=== PATIENT | female | born 2000 | race Caucasian/White ===

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

== ENCOUNTER 2021-11-17 20:30 | Inpatient (IN) ==
--- NOTE | 2021-11-17 20:44 | Emergency Department Note ---
History of Present Illness General Chief complaint: Leg Injury/Pain Stated complaint: POSSIBLE BROKEN LEG, CAN'T BEND, NUMBNESS Time Seen by Provider: 11/17/21 20:44 History of Present Illness Maximum Pain Intensity: 8 This is a 20-year-old female otherwise healthy only on oral contraceptive medication who presents with concern that she broke her left leg. She was at the [employer] [place] and landed awkwardly in the foam pit and states that the leg was moving around. They splinted it with 2 books on either side and came to the emergency department. She has been unable to bear weight on the leg. She has not taken anything for pain. Is only requesting Tylenol because she is dafne rned any other medication may affect her mental status. She denies any numbness or tingling in her feet. Denies any prior injuries or surgeries to the left lower extremity. Did not hit her head, denies any pain anywhere else. Home Medications Medication Instructions Recorded Confirmed Type norethindrone (contraceptive) 1 tab PO DAILY 11/17/21 11/17/21 History Allergies Allergy/AdvReac Type Severity Reaction Status Date / Time prednisone AdvReac Nausea Verified 11/17/21 20:51 Past Med/Surg History Medical History No pertinent past medical history Surgical History No pertinent past surgical history Social History Smoking Status: Never smoker Second Hand Exposure: No; Do You Dip or Chew Tobacco: No; Hx Alcohol Use: No Hx Substance Use: No Preferred Language: Andorran Communication Ability: Effective Computer Assistant Required: No Beliefs That Will Affect Care: None Current Living Situation: Significant Other Current Living Situation Comment: lives with boyfriend Other Information That Helps Us Care for You: No Feels Safe at Home: Yes Safety Concerns: Feels Safe At This Time Assistive Devices: None Review of Systems See HPI for pertinent positives & negatives. and A total of 10 systems reviewed and were otherwise negative Physical Exam Vital Signs Vital Signs - 24 hr 11/17/21 20:33 Temperature 98.1 F Temperature Source Temporal Artery Scan Pulse Rate 90 Respiratory Rate 16 Respiratory Effort / Characteristics Non-Labored Spontaneous Respiratory Depth Normal Respiratory Pattern Regular Blood Pressure 111/68 Blood Pressure Mean 82 Pulse Oximetry 98 Oxygen Delivery Method Room Air Sepsis Recent Fever Within 48 Hours No Sepsis New/Unexplained Change in Mental Status N/A Sepsis Action Taken by Nursing No Action Required CONSTITUTIONAL: Well developed, well nourished, appears to be in pain, shaking intermittently. HEAD: Normocephalic, atraumatic. NECK: Full active range of motion. No spinous process tenderness RESPIRATORY: Breathing unlabored and symmetric. Lungs clear to auscultation bilaterally. No wheeze, rales, or rhonchi. CARDIOVASCULAR: Tachycardic rate and rhythm. No murmurs, rubs, or gallops. DP and PT pulses 2+ bilaterally. CHEST: Nontender, no crepitus. ABDOMEN: Normal bowel sounds. Soft, nontender, no peritonitis. No masses. MUSCULOSKELETAL: Moves bilateral upper and right lower extremities at all joints without pain or difficulty. Left lower extremity: No tenderness in the knee. There is a bulging deformity a t the mid tibial region with associated significant tenderness. Compartments in the lower extremity are soft. Ankle with decreased range of motion although there is no specific focal tenderness appreciated. No foot bony tenderness. There is a 1 cm horizontal superficial linear abrasion several centimeters inferior to the bulge. There is no hemorrhage. Does not communicate with deeper structures. Able to move all toes. Back: No thoracic, lumbar, sacral spinous process tenderness. No step-off deformity. SKIN: [place], warm, dry. Capillary refill less than 2 seconds in bilateral toes. No cyanosis. NEUROLOGIC: Awake, alert, oriented. Gaze is conjugate. Face symmetric. No sensory deficits in bilateral feet/toes. PSYCHIATRIC: Anxious appearing. Course Consultations Consultation #1: Spoke with Dr. Lugo (orthopedics on-call) who visualized the x-rays. We discussed the wound on the leg which does seem to be superficial in nature and is not persistently bleeding. He recommends irrigating the wound, Ancef for prophylaxis however leaning away from open fracture. He recommends a long-leg splint, he will admit the patient, and see her first thing in the morning for surgery Time: 22:30 Administered Medications Discontinued Medications Acetaminophen (Acetaminophen 1000 Mg/100 Ml Iv) Confirm Administered Dose 1,000 mg IV .LayerBoomMED ONE Stop: 11/17/21 21:02 Last Admin: 11/17/21 21:14 Dose: 1,000 mg Documented By: NELY Hydromorphone HCl (Hydromorphone Inj 1 Mg/Ml Syringe) 1 mg IV NOW STA Stop: 11/17/21 22:50 Last Admin: 11/17/21 22:56 Dose: 1 mg Documented By: KATHY Acetaminophen 1,000 mg/ EMPTY (BAG) 100 mls @ 400 mls/hr IV NOW STA Stop: 11/17/21 20:53 Last Admin: 11/17/21 21:15 Dose: Not Given Documented By: NELY Cefazolin Sodium (Ancef 2000mg) 2,000 mg in 15 mls @ 3.75 mls/min IV NOW STA Stop: 11/17/21 22:15 Last Admin: 11/17/21 22:31 Dose: 3.75 mls/min Documented By: NELY Sodium Chloride (Nss) 500 mls @ 999 mls/hr IV .Q31M ONE Stop: 11/18/21 00:12 Last Admin: 11/17/21 23:47 Dose: 999 mls/hr Documented By: ASHANTI Ondansetron HCl (Ondansetron Inj 2 Mg/Ml 2 Ml Vial) 4 mg IV NOW STA Stop: 11/17/21 22:04 Last Admin: 11/17/21 22:06 Dose: 2 mg Documented By: NELY Potassium Chloride (Potassium Chloride Crtab 20 Meq Tabcr) 40 meq PO NOW STA Stop: 11/17/21 23:13 Last Admin: 11/17/21 23:57 Dose: Not Given Documented By: KATHY Medical Decision Making Differential Diagnosis Closed fracture, open fracture, dislocation, subluxation, laceration, abrasion, neurovascular injury, compartment syndrome, intracranial, intrathoracic, intra- abdominal, among other pathology. Laboratory Data Result diagrams: 11/17/21 21:05 11/17/21 23:37 Lab Results 11/17/21 11/17/21 11/17/21 Range/Units 21:05 21:05 21:05 WBC 10.82 H (4.8-10.8) K/ul RBC 4.21 (3.93-5.22) M/uL Hgb 12.7 (12.0-16.0) g/dl Hct 37.0 (34.1-44.9) % MCV 87.9 (80.0-100.0) fL MCH 30.2 (25.0-34.0) pg MCHC 34.3 (32.0-36.0) g/dL RDW Std Deviation 37.9 (36.4-46.3) fL RDW Coeff of [place]alo 11.9 (11.5-14.5) % Plt Count 354 (130-400) K/uL MPV 9.1 L (9.4-12.3) fL Immature Gran % (Auto) 0.4 % Neut % (Auto) 55.1 % Lymph % (Auto) 33.5 % [place] % (Auto) 8.0 % Eos % (Auto) 2.4 % Baso % (Auto) 0.6 % Neut # (Auto) 5.96 (1.4-6.5) K/uL Lymph # (Auto) 3.63 H (1.2-3.4) K/uL [place] # (Auto) 0.87 H (0.24-0.82) K/uL Eos # (Auto) 0.26 (0-0.50) K/uL Baso # (Auto) 0.06 (0-0.2) K/uL Immature Gran # (Auto) 0.04 H (0.00-0.02) K/uL Sodium 139 (136-145) mmol/L Potassium 3.0 L (3.5-5.1) mmol/L Chloride 106 (98-107) mmol/L Carbon Dioxide 24 (21-32) mmol/L Anion Gap 9 (3-11) BUN 15 (6-23) mg/dl Creatinine 0.71 (0.6-1.2) mg/dl Est Cr Clr Drug Dosing 127.2 ml/min Est GFR ( Amer) 140.1 ml/min Est GFR (Non-Af Amer) 120.9 ml/min BUN/Creatinine Ratio 21.1 H (10-20) Glucose 140 H (70-99(Fasting)) mg/dl Calcium 8.6 (8.5-10.1) mg/dl HCG, Qual Negative (Negative) Imaging Data Attestation: I personally reviewed and interpreted this imaging study as follows: My Impression: I agree with the radiologist's interpretation Radiologist's Impression: Ankle X-Ray 11/17/21 20:52 LEFT TIBIA AND FIBULA 2 VIEWS; LEFT ANKLE 2 VIEWS CLINICAL HISTORY: Left leg injury/deformity. FINDINGS: AP and crosstable lateral views of the left tibia and fibula with AP and crosstable lateral views of the left ankle are obtained. No prior studies are available for comparison at the time of dictation. The skeletal structures are well-mineralized. There are displaced horizontally oriented fractures through the mid to distal shaft of the tibia and fibula. There is volar displacement of the distal tibial fragment by 6 mm, as well as rotation of the distal tibia and fibular fragments. There is also a minimally angulated fracture of the proximal fibular shaft. The distal tibia and fibula appear intact. No fracture is seen at the ankle joint. The ankle mortise appears maintained. The knee joint is grossly preserved. Soft tissue edema/injury is seen at the level of the fractures. IMPRESSION: 1. Mildly displaced and rotated horizontal fractures through the mid to distal shaft of the tibia and fibula. 2. There is an additional minimally angulated fracture of the proximal fibular shaft. 3. No fracture is seen at the ankle joint. Electronically signed by: Silvio Roque M.D. 11/17/2021 9:21 PM Tibia/Fibula X-Ray 11/17/21 20:52 LEFT TIBIA AND FIBULA 2 VIEWS; LEFT ANKLE 2 VIEWS CLINICAL HISTORY: Left leg injury/deformity. FINDINGS: AP and crosstable lateral views of the left tibia and fibula with AP and crosstable lateral views of the left ankle are obtained. No prior studies are available for comparison at the time of dictation. The skeletal structures are well-mineralized. There are displaced horizontally oriented fractures through the mid to distal shaft of the tibia and fibula. There is volar displacement of the distal tibial fragment by 6 mm, as well as rotation of the distal tibia and fibular fragments. There is also a minimally angulated fracture of the proximal fibular shaft. The distal tibia and fibula appear intact. No fracture is seen at the ankle joint. The ankle mortise appears maintained. The knee joint is grossly preserved. Soft tissue edema/injury is seen at the level of the fractures. IMPRESSION: 1. Mildly displaced and rotated horizontal fractures through the mid to distal shaft of the tibia and fibula. 2. There is an additional minimally angulated fracture of the proximal fibular shaft. 3. No fracture is seen at the ankle joint. Electronically signed by: Silvio Roque M.D. 11/17/2021 9:21 PM MDM Narrative 20-year-old female presents with an isolated injury to the left lower leg secondary to jumping into [place] foam block [place] [employer] [place]. Deformity and tenderness appreciated at the mid lower leg. Superficial wound in the vicinity of the fracture however this was cleaned by myself and it appears to be more of a "dent" type wound, do not suspect open fracture which was initially considered. Patient has good pulses and sensation is intact, no evidence of compartment syndrome. No additional injuries identified on exam. Patient extremely anxious and does appear to be in significant pain however she was very hesitant to receive anything but Tylenol for pain, declined anything for anxiety due to concern for it causing changes in her mental status. These medications were offered to her multiple times. X-ray of the tibia and fibula and ankle obtained demonstrating displaced and rotated horizontal fractures to the mid to distal shaft of the tibia and fibula as well as a minimally angulated fracture of the proximal fibular shaft. I spoke with Dr. Lugo (orthopedic) as described above who recommended long leg splint, admit overnight, and he will see her first thing in the morning for surgery. Long-leg posterior and stirrup Ortho-Glass splint applied by isotope technician and I confirmed appropriate application and neurovascular intact status after application. Patient's potassium was initially 3.0. Redraw demonstrates 3.5, suspect hemolysis. Canceled IV potassium. Patient did vomit several times after finally accepting a dose of Dilaudid which was ordered by ED attending Dr. Mcfadden. She declined anything else for nausea aside from Zofran. Her initial tachycardia improved although she did still remain mildly tachycardic at time of being transferred to the floor. Impression & Plan Fracture tibia/fibula Discharge Plan Visit Data Chief Complaint: Leg Injury/Pain Stated Complaint: POSSIBLE BROKEN LEG, CAN'T BEND, NUMBNESS ED Provider: Larry Mcfadden ED Midlevel Provider: Chauncey Cummings Discharge Problem: Fracture tibia/fibula Patient Disposition: Admitted As Inpatient Condition: Fair Discharge Instructions Interventions: ED Discharge Assessment Last Done: 11/17/21 23:56
[2021-11-17] MEDS ORDERED: ACETAMINOPHEN 10MG/ML Custom 1,000 MG in EMPTY BAG 0 ML IV STA (20:52)
[2021-11-17] MEDS ORDERED: ACETAMINOPHEN 1000 MG/100 ML IV IV ONE (21:01)
--- NOTE | 2021-11-17 21:23 | XRay Report ---
LEFT TIBIA AND FIBULA 2 VIEWS; LEFT ANKLE 2 VIEWS CLINICAL HISTORY: Left leg injury/deformity. FINDINGS: AP and crosstable lateral views of the left tibia and fibula with AP and crosstable lateral views of the left ankle are obtained. No prior studies are available for comparison at the time of d ictation. The skeletal structures are well-mineralized. There are displaced horizontally oriented fra ctures through the mid to distal shaft of the tibia and fibula. There is volar displacement of the di stal tibial fragment by 6 mm, as well as rotation of the distal tibia and fibular fragments. There is also a minimally angulated fracture of the proximal fibular shaft. The distal tibia and fibula appea r intact. No fracture is seen at the ankle joint. The ankle mortise appears maintained. The knee join t is grossly preserved. Soft tissue edema/injury is seen at the level of the fractures. IMPRESSION: 1. Mildly displaced and rotated horizontal fractures through the mid to distal shaft of the tibia and fibula. 2. There is an additional minimally angulated fracture of the proximal fibular shaft. 3. No fracture is seen at the ankle joint. Electronically signed by: Silvio Roque M.D. 11/17/2021 9:21 PM
[2021-11-17 21:38] LABS: BUN Creatinine Ratio 21.1 (10-20); Calcium 8.6 mg/dl (8.5-10.1); Creatinine Clr Calc Pharmacy 127.2 ml/min; Est GFR (African American) 140.1 ml/min; Est GFR (Non-African American) 120.9 ml/min
[2021-11-17 21:39] LABS: Pregnancy Test, Serum Negative (Negative)
--- NOTE | 2021-11-17 21:57 | Emergency Department Note ---
ED Visit Note Physician Evaluation Note: I have personally evaluated and examined this patient. I agree with assessment and plan of Chauncey Cummings PA-C. Pleasant 20-year-old female arrives for evaluation of left midshaft newman pain. This occurred in a bounce bed. She has a midshaft tibial fracture. Neurovascular intact. There is an abrasion over the newman just distal to the fracture spot. Does not appear to be open there is no bleeding and I do not feel this is consistent with an open fracture at this time. Patient is quite anxious and hesitant about all of this initially declining all medications though eventually agreed to some narcotic pain medications prior to splinting. Larry Mcfadden MD : Fracture tibia/fibula Qualifiers: Encounter type: initial encounter Fracture type: closed Laterality: left Qualified Code(s): S82.202A - Unspecified fracture of shaft of left tibia, initial encounter for closed fracture
[2021-11-17] MEDS ORDERED: ONDANSETRON INJ 2 MG/ML 2 ML VIAL IV STA (22:03)
[2021-11-17 22:04] LABS: Basophils # (auto) 0.06 K/uL (0-0.2); Basophils % (auto) 0.6 %; Eosinophils # (auto) 0.26 K/uL (0-0.50); Eosinophils % (auto) 2.4 %; Hemoglobin 12.7 g/dl (12.0-16.0); Immature Granulocytes # (auto) 0.04 K/uL (0.00-0.02); Immature Granulocytes % (auto) 0.4 %; Lymphocytes # (auto) 3.63 K/uL (1.2-3.4); Lymphocytes % (auto) 33.5 %; Mean Corpuscular Hemoglobin 30.2 pg (25.0-34.0); Mean Corpuscular Hgb Conc 34.3 g/dL (32.0-36.0); Mean Corpuscular Volume 87.9 fL (80.0-100.0); Mean Platelet Volume 9.1 fL (9.4-12.3); Monocytes # (auto) 0.87 K/uL (0.24-0.82); Neutrophils # (auto) 5.96 K/uL (1.4-6.5); Neutrophils % (auto) 55.1 %; Platelet Count 354 K/uL (130-400); RDW Coefficient of Variation 11.9 % (11.5-14.5); RDW Standard Deviation 37.9 fL (36.4-46.3); Red Blood Count 4.21 M/uL (3.93-5.22); White Blood Count 10.82 K/ul (4.8-10.8)
[2021-11-17] MEDS ORDERED: ceFAZolin 2000MG 2,000 MG/15 ML SYR IV STA (22:12)
[2021-11-17] MEDS ORDERED: HYDROmorphone INJ 1 MG/ML SYRINGE IV STA (22:49)
[2021-11-17] MEDS ORDERED: POTASSIUM CHLORIDE CRTAB 20 MEQ TABCR PO STA (23:12)
[2021-11-17] MEDS ORDERED: SODIUM CHLORIDE 0.9% 500 ML IV ONE (23:42)
[2021-11-18] MEDS ORDERED: POTASSIUM CHLORIDE / WTR 10 MEQ/100 ML PLCT IV SCH (00:15)
[2021-11-18] MEDS ORDERED: oxyCODONE HCL IR 5 MG TAB (IMMEDIATE RELEASE) PO PRN ×2 (00:35→11:19)
[2021-11-18] MEDS ORDERED: ALUMINUM/MAGNESIUM SUSP 30 ML UDC PO PRN ×2 (00:35→11:19)
[2021-11-18] MEDS: SODIUM CHLORIDE 0.9% 1000ML 1,000 ML IV SCH ×4 (01:06→21:40)
[2021-11-18] MEDS: KETOROLAC 30 MG/ML VIAL IV SCH ×5 (01:16→16:16)
[2021-11-18] MEDS: ONDANSETRON INJ 2 MG/ML 2 ML VIAL IV PRN ×2 (05:00→11:30)
[2021-11-18] MEDS: ceFAZolin 2000MG 2,000 MG/15 ML SYR IV SCH ×3 (05:01→21:44)
[2021-11-18] MEDS: ACETAMINOPHEN 1,000 MG/100 ML VIAL IV SCH ×2 (05:01→14:20)
--- NOTE | 2021-11-18 07:17 | Electrocardiogram Report ---
Test Reason : Blood Pressure : / mmHG Vent. Rate : 089 BPM Atrial Rate : 089 BPM P-R Int : 160 ms QRS Dur : 094 ms QT Int : 364 ms P-R-T Axes : 038 025 022 degrees QTc Int : 442 ms Normal sinus rhythm with sinus arrhythmia Normal ECG No previous ECGs available Confirmed by Kali Mclaughlin ([id number]) on 11/18/2021 7:16:47 AM Referred By: REFERRED SELF Confirmed By:López Mclaughlin
--- NOTE | 2021-11-18 07:18 | Anesthesiology Consultation ---
Date of Service November 18, 2021 Assessment & Plan Chart Review Chart Review: Acceptable Risk for Surgery and Patient NOT seen in Pre Admission Testing Consults Requested none ASA ASA2 Proposed Anesthesia Anesthesia Type: General History Surgery Operation Date: 11/18/21 08:00 Proposed Procedures p Arthroscopic ORIF Tibial Plateau(Left) - Duncan Lugo MD Height/Weight Height: 5 ft 4 in Weight: 83.4 kg Allergies Allergy/AdvReac Type Severity Reaction Status Date / Time prednisone AdvReac Nausea Verified 11/17/21 20:51 Medications Home Medications Medication Instructions Recorded Confirmed Last Taken norethindrone (contraceptive) 1 tab PO DAILY 11/17/21 11/17/21 11/17/21 Active Medications Generic Name Dose Route Start Last Admin Trade Name Freq PRN Reason Stop Dose Admin Sodium Chloride 1,000 mls @ 100 mls/hr 11/18/21 00:35 11/18/21 01:06 Nss 1000ml IV 12/18/21 00:34 100 mls/hr .Q10H HUI Administration Cefazolin Sodium 2,000 mg in 15 mls @ 2.5 mls/min 11/18/21 06:00 11/18/21 05:01 Ancef 2000mg IV 12/30/21 05:59 2.5 mls/min Q8H HUI Administration Protocol Acetaminophen 1,000 mg in 100 mls @ 400 mls/hr 11/18/21 06:00 11/18/21 05:20 Ofirmev IV 11/21/21 05:59 Infused Q8H HUI Infusion Ketorolac Tromethamine 30 mg 11/18/21 00:00 11/18/21 06:26 Ketorolac 30 Mg/Ml Vial IV 11/23/21 00:00 Not Given Q6H HUI Ondansetron HCl 4 mg 11/18/21 00:35 11/18/21 05:00 Ondansetron Inj 2 Mg/Ml 2 Ml Vial IV 12/18/21 00:34 4 mg Q6H PRN Administration Nausea/Vomiting Past Medical History Medical History No pertinent past medical history Exercise / Class Metabolic Activity 1 > 8 Run/Swim/Ski/Tennis Past Surgical History Surgical History No pertinent past surgical history Past Anesthesia History No Hx of Anesthesia Complications and No Family Hx of Anesthesia Complications History of PONV No Hx of PONV and No Hx of Motion Sickness Social History Smoking Status: Never smoker Do You Dip or Chew Tobacco: No Hx Alcohol Use: No Hx Substance Use: No substance use type: does not use Physical Exam Vital Signs Last Vital Signs Temp 36.6 C 11/18/21 00:38 Pulse 106 H 11/18/21 00:38 Resp 20 11/18/21 00:38 BP 125/83 11/18/21 00:38 Pulse Ox 97 11/18/21 00:38 O2 Del Method 11/18/21 00:38 Testing Laboratory Results 11/17/21 21:05 11/17/21 23:37 Electrocardiogram Date: 11/18/21 Findings: + NSR @ (at 87 w/ sinus arrhythmia)
[2021-11-18] MEDS ORDERED: PROPOFOL IV EMULSION 10 MG/ML 20 ML VIAL IV ONE (07:19)
[2021-11-18] MEDS ORDERED: DEXAMETHASONE SOD INJ 4 MG/ML VIAL ONE (07:19)
[2021-11-18] MEDS ORDERED: GLYCOPYRROLATE 0.2 MG/ML VIAL ONE (07:19)
[2021-11-18] MEDS ORDERED: ONDANSETRON INJ 2 MG/ML 2 ML VIAL ONE (07:19)
[2021-11-18] MEDS ORDERED: fentaNYL citrate 100 MCG/2 ML VIAL ONE ×3 (07:20→07:42)
--- NOTE | 2021-11-18 07:20 | History & Physical Report ---
Date of Service November 18, 2021 Assessment & Plan (1) Fracture tibia/fibula: We discussed treatment options the patient. This is clearly some best treated surgically. The risks and benefits of surgical fixation were explained. The plan will be IM nailing of a left tib-fib fracture. The risk meant this proc edure explained the patient and her boyfriend include but not limited to DVT PE infection neurological injury vascular bleeding palm pain limb range of motion test is fairly of her symptoms nonunion malunion compartment syndrome infection etc. The patient understands. She is elected to proceed. It took quite a bit of encouragement to encourage her to proceed. This is clearly in her best interest. History of Present Illness Chief Complaint: . Left leg injury. Primary Care Provider: Trina Enciso PA-C . Patient is a 20-year-old female sustained an injury to her left leg last evening. She was at [employer] when she jumped in the foam pit. Not exactly sure what happened with her leg gave way. Cute onset of pain. She brought the emergency room where x-rays revealed a tib-fib fracture. She was splinted and were asked to assume her care. Denies any pre-existing leg pain. There is apparently a small transverse superficial wound but was not felt to be an open fracture. No other injuries. Allergies Allergy/AdvReac Type Severity Reaction Status Date / Time prednisone AdvReac Nausea Verified 11/17/21 20:51 Home Medications Medication Instructions Recorded Confirmed Type norethindrone (contraceptive) 1 tab PO DAILY 11/17/21 11/17/21 History Past Med/Surg History Medical History No pertinent past medical history Surgical History No pertinent past surgical history Social History Smoking Status: Never smoker Second Hand Exposure: No; Do You Dip or Chew Tobacco: No; Hx Alcohol Use: No Hx Substance Use: No Preferred Language: Trinidadian Communication Ability: Effective Petroleum Engineer Required: No Beliefs That Will Affect Care: None Current Living Situation: Significant Other Current Living Situation Comment: lives with boyfriend Other Information That Helps Us Care for You: No Feels Safe at Home: Yes Safety Concerns: Feels Safe At This Time Assistive Devices: None Review of Systems All systems reviewed & are unremarkable except as noted in HPI & below. Physical Exam Physical examination reveals a very a frightened scared 20-year-old female. She keeps repeating that she does not like feeling weird and she is scared. She is afraid she did not from anesthesia. Examination of the left leg reveals the splint to be in place. Very minimal deformity. She can flex extend her toes with minimal discomfort. She is got brisk refill. She is neurologically intact. Her bandage is in place and I did not get a chance to examine the wound. Constitutional WD/WN, vitals as above Eyes PERRL, conjunctivae normal, anicteric sclerae Neck trachea midline, no thyromegaly Respiratory normal respiratory effort, lungs clear to auscultation Cardiovascular RRR, no murmur, no edema Psychiatric Mood: + anxious mood Patient is fairly hysterical and afraid of surgery. Keeps saying she is afraid she is going to . Results & Data Results & Data Laboratory Results . Diagnostic Findings . X-rays of left tib-fib were reviewed. Shows a transverse displaced midshaft tibia fracture with a segmental fibula fracture. PG Care Time/CCT Total # of Minutes Spent Total Time Spent with Patient: Total time spent is greater than 50% in coordination of care (as documented) at patient's floor/unit and/or counseling patient: Coding Level of Care Code 17863 Initial Inpt Care Lvl 3 Diagnoses Fracture tibia/fibula S82.202A; S82.402A Encounter type: initial encounter Fracture type: closed Laterality: left (1) Fracture tibia/fibula Encounter type: initial encounter Fracture type: closed Laterality: left Qualified Code(s): S82.202A - Unspecified fracture of shaft of left tibia, initial encounter for closed fracture; S82.402A - Unspecified fracture of shaft of left fibula, initial encounter for closed fracture
[2021-11-18] MEDS ORDERED: BUPIVACAINE 0.5 % 5 MG/1 ML MPF 30ML VIAL ONE (07:29)
[2021-11-18] MEDS ORDERED: EPINEPHrine INJ 1 MG/ML AMP ONE (07:29)
[2021-11-18] MEDS ORDERED: NALOXONE HCL 0.4 MG/1 ML VIAL/CARP IV PRN ×2 (07:33→11:19)
[2021-11-18] MEDS ORDERED: ONDANSETRON INJ 2 MG/ML 2 ML VIAL IV PRN ×2 (07:33→11:19)
[2021-11-18] MEDS ORDERED: FLUMAZENIL 0.1 MG/1 ML 10 ML VIAL IV PRN (07:33)
[2021-11-18] MEDS ORDERED: fentaNYL citrate 100 MCG/2 ML VIAL IV PRN (07:33)
[2021-11-18] MEDS ORDERED: HYDROmorphone INJ 1 MG/ML SYRINGE IV PRN (07:33)
[2021-11-18] MEDS ORDERED: ePHEDrine sulfate 50 MG/ML AMP IV PRN (07:33)
[2021-11-18] MEDS ORDERED: ATROPINE SULFATE 0.1 MG/ML 10ML SYR IV PRN (07:33)
[2021-11-18] MEDS ORDERED: PROMETHAZINE HCL 12.5 MG in SODIUM CHLORIDE 0.9% 50 ML IV PRN (07:33)
[2021-11-18] MEDS ORDERED: MIDAZOLAM HCL 1 MG/ML 2ML VIAL ONE (07:42)
[2021-11-18] MEDS ORDERED: KETAMINE 50 MG/5 ML SYRINGE ONE (08:02)
[2021-11-18] MEDS ORDERED: ceFAZolin 330 MG/ML 1 GM VIAL ONE (08:12)
[2021-11-18] MEDS ORDERED: HYDROmorphone INJ 2 MG/ML SYR/VIAL ONE (08:18)
[2021-11-18] MEDS ORDERED: ESMOLOL HCL INJ 10 MG/ML 10ML VIAL IV ONE (08:19)
[2021-11-18] MEDS ORDERED: NEOSTIGMINE METHYLSULFATE 1 MG/ML 10ML VIAL ONE (08:20)
[2021-11-18] MEDS ORDERED: ROCURONIUM BROMIDE 10 MG/ML 5 ML VIAL IV ONE (08:20)
--- NOTE | 2021-11-18 10:22 | Fluoroscopy Report ---
FL tibia/fibula LT 2V HISTORY: 20 years-old Female LEFT TIB/FIB ORIF acute fractures of the left tibia and fibula COMPARISON: Left tibia and fibula radiographs 11/17/2021 TECHNIQUE: 6 spot fluoroscopic images of the left tibia and fibula were obtained utilizing 85.6 secon ds fluoroscopy time FINDINGS: Status post placement of an intramedullary delicia with 2 proximal and 2 distal cannulated fixation screw s within the tibia. The hardware appears intact. There is now improved near anatomic alignment of the acute mid diaphyseal tibial fracture. Displaced mid diaphyseal and nondisplaced proximal diaphyseal fibular fractures are redemonstrated. No unexpected opaque foreign bodies. IMPRESSION: Fluoroscopic assistance as above. ACT 112: Negative or not required by law. The above report was generated using voice recognition software. It may contain grammatical, syntax o r spelling errors. Electronically signed by: Chapito Castro M.D. 11/18/2021 10:20 AM
[2021-11-18] MEDS ORDERED: ceFAZolin 1000MG 1,000 MG/7.5 ML SYR IV ONE (10:29)
--- NOTE | 2021-11-18 10:45 | Operative Report ---
PG Post Operative Report Pre & Post Diagnosis Operation Date: 11/18/21 08:00 Pre-Op Diagnosis: Left displaced midshaft Tibia/Fibula Fracture Post-Op Diagnosis: Left displaced midshaft Tibia/Fibula Fracture I identified the patient and participated in the time-out.: Yes Procedure Operation Date: 11/18/21 08:00 Actual Procedures p Intramedullary Nail Left Tibia(Left) - Duncan Lugo MD Surgeon Duncan Lugo MD Portfolio Manager Robbin Swift PA-C Estimated Blood Loss 100 Findings Consistent with Post-Op Diagnosis Operative findings revealed a slightly comminuted transverse midshaft tibia fracture. It was quite unstable with a lot of varus valgus instability due to the nature of the a short fracture line. Specimens None Anesthesia Type General Indications Patient is a 20-year-old female who was sustained injury to her left leg last evening at the [employer]. She apparently jumping on phone. In injured her leg in some fashion. She brought the emergency room x-rays were midshaft tib-fib fracture. There was a small abrasion on the front of her newman. I examined this extensively and I did not even go through the skin it was just an abrasion. No signs of open fracture. The patient was splinted and medically optimized indicated for surgical treatment. Description of Procedure Operative implants consist of: 1 Synthes 8.0 mm x 315 mm titanium tibial nail. 2. 10 mm endcap. 3. 4.00 fully threaded interlocking screws x4. The patient was taken the operating, identified, placed on the operating table supine position protectors were properly padded. IV antibiotics have been provided preoperatively. Which she got an additional gram of vancomycin. There was initially some concern about an open fracture but she did have just a small abrasion on the front of the newman did not even go through the skin. There was no open fracture. A general anesthetic was implemented. A left thigh tent was then placed. The left lower extremity splint was removed and the left leg was then scrubbed with Hibiclens, prepped with ChloraPrep and draped in usual sterile fashion. An anterior approach to the left proximal tibia was then performed through a longitudinal incision over the medial border patella tendon. Sharp dissection was carried through subcutaneous tissue down the patella tendon. The patella tendon was then retracted laterally. A guidewire was placed in the apex of the proximal anterior tibia. Position this was verified fluoroscopically and then advanced down the canal. I did overreamed this then with a 12 mm reamer. The reamer was removed. Ball-tipped guidewire was placed down the canal. Longitudinal traction was applied to the tibia and the guidewire was passed across the fracture site without difficulty. We measured for nail length and a 315 mm nail was selected. I then began reaming. We started at 8 and half. Even that was quite tight. We reamed up to a 9-/2 and required quite a bit of force to get across the fracture site. We did elect to place an 8 mm nail due to the very narrow dimensions of her IM canal. An 8 mm x 315 mm nail was then placed over the guidewire and across the fracture site. Rotation was checked and found to be anatomic. We then unlock this proximally using two4.0 screws through stab incision in the jig. The jig was then removed and the 10 mm endcap was placed. Attention drawn toward distal interlocking. Using the perfect [place] technique stab incisions were made and 2 distal interlocking screws were placed from medial to lateral under fluoroscopic guidance. Once this was completed some final x-rays were obtained. The wounds irrigated with copious knots normal saline. We did inject locally with 30 cc of absent Marcaine with epinephrine. All wounds were then irrigated again. The medial parapatellar incision was closed with a #1 Vicryl suture in [id number] fashion for subcutaneous tissues of all wounds were closed with 2 Dexon suture in a buried interrupted fashion skin was closed with a 3-0 nylon suture in simple fashion. The leg was then cleaned and dried a sterile dressing was Xeroform, 4 x 4's, ABD pads, sterile cast padding, and a posterior and stirrup splint were applied. The patient then brought out of general anesthesia and transferred to the recovery room in stable condition. Patient tolerated procedure well and there were no complications. Jadiel Bryant, my physician assistant manager of operations, was present for the entire procedure. His assistance was required for proper patient positioning, prepping and draping, surgical exposure, retraction, perform the technical details of the operation, placement of hardware, closure of the incisions and placement of the sterile bandage. I attest to the content of the Intraoperative Record and any orders documented therein. Any exceptions are noted below.
[2021-11-18] MEDS ORDERED: bisacodyL 10 MG SUPP PR PRN (11:19)
[2021-11-18] MEDS ORDERED: MAGNESIUM HYDROXIDE SUSP 30 ML UDC PO PRN (11:19)
[2021-11-18] MEDS ORDERED: METOCLOPRAMIDE HCL INJ 5 MG/ML 2 ML VIAL IV PRN (11:19)
[2021-11-18] MEDS ORDERED: diphenhydrAMINE Capsule 25 MG CAP PO PRN (11:19)
--- NOTE | 2021-11-18 11:46 | Anesthesiology Progress Note ---
Date of Service November 18, 2021 Anesthesia Post Procedure Vital Signs Vital Signs: Temp Pulse Pulse Pulse Resp BP BP 11/18/21 11:40 36.5 C 88 18 134/81 11/18/21 11:15 36.5 C 94 H 18 145/83 H 11/18/21 11:05 36.4 C L 90 16 127/71 11/18/21 10:55 90 15 128/79 11/18/21 10:45 94 H 16 127/67 11/18/21 10:36 36.0 C L 67 16 120/66 11/18/21 00:38 36.6 C 106 H 20 125/83 11/18/21 00:00 121 H 18 11/17/21 23:46 36.8 C 11/17/21 23:03 128 H 18 11/17/21 20:33 36.7 C 90 16 111/68 BP Pulse Ox O2 Del Method O2 Flow Rate 11/18/21 11:40 96 Room Air 11/18/21 11:15 94 Room Air 11/18/21 11:05 100 Room Air 11/18/21 10:55 100 Oxymask 3 11/18/21 10:45 94 Oxymask 5 11/18/21 10:36 97 Oxymask 5 11/18/21 00:38 97 Room Air 11/18/21 00:00 137/79 98 Room Air 11/17/21 23:46 11/17/21 23:03 127/70 97 Room Air 11/17/21 20:33 98 Room Air Pain Intensity Left Lower Leg: Pain Intensity: 10 Transfer of Care Handoff Completed per policy Notes Mental Status: alert / awake / arousable Patient Amnestic to Procedure: Yes Nausea / Vomiting: adequately controlled Pain: adequately controlled Airway Patency, RR, SpO2: stable & adequate BP & HR: stable & adequate Hydration State: stable & adequate Anesthetic Complications: no major complications apparent
[2021-11-18] MEDS: ACETAMINOPHEN 500 MG TAB PO SCH ×2 (14:20→21:42)
[2021-11-18] MEDS ORDERED: ceFAZolin 2000MG 2,000 MG/15 ML SYR IV SCH (16:45)
[2021-11-18] MEDS ORDERED: SENNA 8.6 MG TAB PO SCH (21:00)
[2021-11-18] MEDS: ASPIRIN 81 MG ECTAB PO SCH (21:42)
[2021-11-18] MEDS: DOCUSATE SODIUM 100 MG CAP PO SCH (21:43)
[2021-11-19] MEDS: KETOROLAC 30 MG/ML VIAL IV SCH ×3 (00:28→11:44)
[2021-11-19] MEDS: ACETAMINOPHEN 1,000 MG/100 ML VIAL IV SCH ×3 (00:28→13:23)
[2021-11-19] MEDS: ACETAMINOPHEN 500 MG TAB PO SCH ×2 (05:13→13:23)
[2021-11-19] MEDS: ceFAZolin 2000MG 2,000 MG/15 ML SYR IV SCH (05:37)
[2021-11-19] MEDS: ASPIRIN 81 MG ECTAB PO SCH (08:07)
[2021-11-19] MEDS: DOCUSATE SODIUM 100 MG CAP PO SCH (08:08)
--- NOTE | 2021-11-19 08:31 | Progress Notes ---
DATE OF NOTE: 11/19/2021 SUBJECTIVE: A 20-year-old female postoperative day 1 from IM nailing of a left tib-fib fracture. Sh medina is doing much better this morning. Much more comfortable. No complaints. No new pains. OBJECTIVE: VITAL SIGNS: Temperature 36.9. Vital signs are stable. GENERAL: Shows a pleasant 20-year-old female. She is much more relaxed and calm this morning. LUNGS: Clear to auscultation. HEART: Has regular rate and rhythm. ABDOMEN: Soft, nontender, nondistended. EXTREMITIES: Grossly neurovascularly intact except as follows. Examination of the left leg reveals the dressing to be clean, dry and intact. There is no drainage. She can dorsiflex and plantarflex her toes appropriately. Minimal pain with this. ASSESSMENT: A 20-year-old female postoperative day 1 from IM nailing of a left tib-fib fracture. Reanna haney is doing well. Much improved. PLAN: 1. DVT prophylaxis includes thigh-high TEDs, SCDs, and aspirin twice a day. We are going to hold he r oral contraceptive during this postoperative period to try and limit thrombosis. 2. PT/OT. She is nonweightbearing left leg for 2 weeks. 3. Pain control, doing okay with current pain regimen. 4. Disposition: Plan to discharge to home after therapy today if she does okay. Job ID: [id number]
[2021-11-19] MEDS ORDERED: MULTIVITAMIN TAB PO SCH (09:00)
--- NOTE | 2021-11-21 13:13 | Discharge Summary ---
Date of Service November 21, 2021 Admission HPI (Per Admitting) . Patient is a 20-year-old female sustained an injury to her left leg last evening. She was at [employer] when she jumped in the foam pit. Not exactly sure what happened with her leg gave way. Cute onset of pain. She brought the emergency room where x-rays revealed a tib-fib fracture. She was splinted and were asked to assume her care. Denies any pre-existing leg pain. There is apparently a small transverse superficial wound but was not felt to be an open fracture. No other injuries. Admission Exam (Per Admitting) Physical examination reveals a very a frightened scared 20-year-old female. She keeps repeating that she does not like feeling weird and she is scared. She is afraid she did not from anesthesia. Examination of the left leg reveals the splint to be in place. Very minimal deformity. She can flex extend her toes with minimal discomfort. She is got brisk refill. She is neurologically intact. Her bandage is in place and I did not get a chance to examine the wound. Principal Diagnosis Same as "Discharge Diagnosis" noted below under Discharge Instructions. Discharge Data Consultations 11/17/21 22:32 ED Decision to Admit Stat Procedures Performed Operation Date: 11/18/21 08:00 Actual Procedures p Intramedullary Nail Left Tibia(Left) - Duncan Lugo MD Ordered Studies 11/18/21 FL tibia/fibula LT 2V Routine Hospital Course (1) Fracture tibia/fibula: Admitted overnight on 11/17 d/t displaced L tib/fib fracture. Underwent successful IM nail placement to her left tibia on 11/18. Post operative course was without complication and she was discharged home on 11/19. She is to remain NWB to LLE and take aspirin BID for 6 weeks for DVT ppx. Hold oral contraceptive for 6 weeks. Encounter type: initial encounter Fracture type: closed Laterality: left Qualified Code(s): S82.202A - Unspecified fracture of shaft of left tibia, initial encounter for closed fracture; S82.402A - Unspecified fracture of shaft of left fibula, initial encounter for closed fracture PG Care Time/CCT Total # of Minutes Spent Total Time Spent with Patient: Total time spent is greater than 50% in coordination of care (as documented) at patient's floor/unit and/or counseling patient: Discharge Plan Discharge Items Patient Disposition: Home - Self-Care Reason For Visit: LEFT TIBAI/FIBULA FRACTURE Discharge Diagnosis: Internal Fixation of Left Tibia/FIbula Fracture Condition on Discharge: Fair Activity: Per Instructions section Activity Comment: Non-weightbearing on Left Leg. Keep all pressure off Heel Weightbearing: Left non-weightbearing Non-emergency contact: Surgeon Call non-emergency contact if: you have any medication questions Follow-up/Referrals: Duncan Lugo MD [Physician] - (Orthopedic follow-up 2-3 weeks from surgery date) Trina Enciso PA-C [Primary Care Provider] - Diet: Regular Addtl Attending Provider Instructions: Keep splint and bandage clean, dry, and in place Keep all pressure off heel Pending Studies at Discharge: No Stand-Alone Forms: My [employer], Smoking Cessation Medications and DC Order Prescriptions: New acetaminophen [Tylenol Extra Strength] 500 mg Tablet 1,000 mg PO Q8 30 Days Qty: 180 0RF Rx Instructions: Take 3 times per day to lessen pain aspirin 81 mg Tablet,Delayed Release (Dr/Ec) 81 mg PO BID 30 Days Qty: 60 0RF Rx Instructions: Take to prevent blood clots. oxycodone 5 mg Tablet 5 - 10 mg PO Q6H PRN (Reason: pain) Qty: 30 0RF Rx Instructions: Take as needed for Pain. Do not take more than 6 tablets per day ketorolac 10 mg tablet 10 mg PO Q6H 5 Days Qty: 20 0RF Rx Instructions: Take 4 times per day with food for 5 days to decrease pain and swelling. Continued budesonide-formoterol [Symbicort] 80-4.5 mcg/actuation HFA aerosol inhaler 2 puff INHALATION BID azithromycin 250 mg tablet 250 mg PO UD Rx Instructions: ordered 07/23/21 for 5 days azelastine 137 mcg (0.1 %) aerosol,spray 1 spray INTRANASAL BID albuterol sulfate 90 mcg/actuation aerosol powdr breath activated 2 puffs INH DIRECTED PRN (Reason: Shortness Of Breath) Discontinued norethindrone (contraceptive) 0.35 mg tablet 0.35 mg PO DAILY Qty: 84 3RF naproxen 500 mg tablet 500 mg PO BID PRN (Reason: pain) Qty: 20 0RF norethindrone (contraceptive) 1 tab PO DAILY No Action (DME) Wheelchair (Manual) Device See Rx Instructions .Route Qty: 1 0RF Rx Instructions: As directed Discharge Orders: Discharge Order (Routine); Ordered 11/19/21 Ordered By: Duncan Lugo Admission Data Admit Date/Time: 11/17/21 22:20 Attending Provider: Duncan Lugo Admit Provider: Duncan Lugo Primary Care Provider: Trina Enciso Other Providers: Duncan Lugo Other Interventions: Discharge Summary Assessment (RN) Last Done: 11/19/21 13:14
== END 2021-11-19 14:48 | disposition home or self-care (01) | DRG 494 ==
LOC: ED 20:30 → 3W 22:20 → MERGE 22:20 → 3W 23:56

== ENCOUNTER 2023-03-20 14:14 | Inpatient (IN) ==
[2023-03-20] MEDS ORDERED: oxyCODONE/ACETAMINOPHEN 5mg/325mg TAB PO STA (14:24)
[2023-03-20] MEDS ORDERED: ACETAMINOPHEN 325 MG TAB PO PRN (14:24)
[2023-03-20] MEDS ORDERED: LACTATED RINGER'S 1,000 ML IV ONE (14:28)
--- NOTE | 2023-03-20 14:53 | History & Physical Report ---
Date of Service March 20, 2023 Assessment & Plan (1) Back pain affecting in third trimester: Plan: 22-year-old G1, P0 at 38 weeks and 3 days of gestation presenting today with back pain, nausea vomiting, diarrhea, Appears to be in discomfort with irregular contractions, Spine and extremity exam is normal, Maternal and tachycardia, most likely from dehydration and being in pain, Plan to observe, monitor, labs, IV fluid hydration, offered her pain medication but declined, reevaluate. All questions were answered. (2) Nausea and vomiting during : (3) Diarrhea during : (4) Antepartum tachycardia affecting care of mother: History of Present Illness Chief Complaint: Back pain Primary Care Provider: Trina Enciso PA-C Patient is a 22-year-old G1, P0 at 38 weeks and 3 days of gestation who has been feeling constant back pain since this morning. She took 1000 milligrams of Tylenol at 11:30 AM and it did not help. She has had nausea vomiting throughout this and today as well. She had was here about 2 weeks ago when she had diarrhea which resolved then now started again this morning but not as bad as before. She tried to eat and drink today but she vomited most of the time. She denies vaginal bleeding or leaking. She reports good movements. She was in office yesterday and her cervix was 2 cm dilated, 50% effaced and -3. I checked her now and she is 2 to 3 cm dilated, 50% effaced, head is -3 and cervix is posterior. I offered her pain medication but she declined she states if she is in labor she wants to do without pain medication. After counseling about hydration nausea vomiting diarrhea recommend with her IV fluid hydration and then ambulate if she can and I will recheck her cervix. And she agrees. Allergies Allergy/AdvReac Type Severity Reaction Status Date / Time prednisone AdvReac Nausea Verified 03/11/23 00:53 Home Medications Medication Instructions Recorded Confirmed Type ondansetron 4 mg disintegrating 4 mg PO Q6H PRN nausea and 08/08/22 03/11/23 Rx tablet vomiting #20 tabs famotidine 20 mg tablet 20 mg PO HS 01/21/23 03/11/23 History omeprazole 40 mg capsule,delayed 40 mg PO QAM 01/21/23 03/11/23 History release pediatric multivitamin no.76 1 tab PO DAILY 03/11/23 03/11/23 History (Flintstones Complete chewable tablet) Patient History Medical History No pertinent past medical history Vestibular migraine Dizziness Migraine Cephalgia Asthma Surgical History No pertinent past surgical history S/P adenoidectomy Hx of tonsillectomy Family History Father Hypertension Grandmother Heart disease Other Allergies Family history non-contributory Hearing loss of aging Social History Smoking Status: Never smoker Second Hand Exposure: No; Do You Dip or Chew Tobacco: No; Tobacco Cessation Education Requested by Patient: No Hx Alcohol Use: No Hx Substance Use: No Preferred Language: Yakut Communication Ability: Effective Beet Worker Required: No Beliefs That Will Affect Care: None marital status: Single Current Living Situation: Significant Other Current Living Situation Comment: lives with boyfriend How many Children do You have: 0 Other Information That Helps Us Care for You: No Feels Safe at Home: Yes Safety Concerns: Feels Safe At This Time Assistive Devices: Glasses Review of Systems as per Subjective / HPI Physical Exam Constitutional: WD/WN, vitals as above well developed, well nourished and + acute distress (She appears to be in pain) Gastrointestinal (Abdomen): normal bowel sounds, soft, nontender, no hepatosplenomegaly (Gravid) Musculoskeletal: Spine: + paraspinal tenderness Extremities: extremities normal to inspection and strength 5/5 throughout Back symmetric, no CVA tenderness, straight leg test were negative bilaterally, range of motion of hip and knee joints are normal, no sensory deficiency, no motor deficiency. Genitourinary: Manual OB Exam: + cervical dilation 2 cm (2-3), + cervical effa cement 50% and + station high OB Exam Monitor Tracing: + external uterine monitor used and + category I (Tachycardia baseline seems to be 170s) Results & Data Vital Signs (Past 12 Hours) Vital Signs Temp Pulse Resp BP 03/20/23 14:33 37.7 C H 130 H 20 127/90 03/20/23 14:25 131 H 127/90
[2023-03-20] MEDS ORDERED: BUTORPHANOL TARTRATE 1 MG/ML VIAL IV PRN (15:05)
[2023-03-20 15:27] LABS: Basophils # (auto) 0.02 K/uL (0.00-0.20); Basophils % (auto) 0.1 %; Eosinophils # (auto) 0.03 K/uL (0.00-0.50); Eosinophils % (auto) 0.2 %; Hematocrit (blood only) 31.2 % (37.0-47.0); Hemoglobin 10.9 g/dl (12.0-16.0); Immature Granulocytes # (auto) 0.09 K/uL (0.01-0.20); Immature Granulocytes % (auto) 0.5 %; Lymphocytes % (auto) 5.1 %; Mean Corpuscular Hemoglobin 30.5 pg (25.0-34.0); Mean Corpuscular Hgb Conc 34.9 g/dL (32.0-36.0); Mean Corpuscular Volume 87.4 fL (80.0-100.0); Mean Platelet Volume 9.5 fL (9.4-12.4); Monocytes # (auto) 1.24 K/uL (0.11-0.59); Neutrophils % (auto) 87.1 %; Platelet Count 301 K/uL (130-400); RDW Coefficient of Variation 12.6 % (11.5-14.5); RDW Standard Deviation 40.1 fL (36.4-46.3); Red Blood Count 3.57 M/uL (4.20-5.40); White Blood Count 17.68 K/ul (4.8-10.8)
[2023-03-20] MEDS ORDERED: D5W AND LACTATED RINGERS 1,000 ML IV SCH (15:45)
[2023-03-20 15:48] LABS: Albumin Level 3.3 gm/dl (3.4-5.0); Anion Gap 8 (3-11); Bilirubin,Total 0.3 mg/dl (0.2-1.0); Calcium 8.5 mg/dl (8.6-10.3); Carbon Dioxide 20 mmol/L (21-32); Chloride 106 mmol/L (98-107); Potassium 3.7 mmol/L (3.5-5.1); Sodium 134 mmol/L (136-145)
[2023-03-20 15:54] LABS: Alanine Aminotransferase 9 U/L (7-52); Albumin Globulin Ratio 1.3 (0.9-2); Alkaline Phosphatase 117 U/L (34-104); Aspartate Aminotransferase 15 U/L (13-39); BUN Creatinine Ratio 18.9 (10-20); Blood Urea Nitrogen 10 mg/dl (6-23); Creatinine Clr Calc Pharmacy 183.7 ml/min; Est GFR (African American) > 150.0 ml/min; Est GFR (Non-African American) 132.9 ml/min; Globulin 2.6 gm/dl (2.5-4.0); Glucose 92 mg/dl (70-99(Fasting)); Total Protein 5.9 gm/dl (6.0-8.3)
[2023-03-20 16:34] LABS: Appearance Urine Clear (Clear); Bacteria Urine Automated Negative (Negative); Bilirubin Urine Negative (Negative); Blood Urine Negative (Negative); Color Urine Yellow; Epithelial Cell Urine Auto >30 /lpf (0-5); Glucose Urine UA Negative (Negative); Ketones Urine Negative (Negative); Leukocyte Esterase Urine Trace (Negative); Nitrite Urine Negative (Negative); Protein Urine Negative (Negative); RBC Urine Automated 0-4 /hpf (0-4); Urobilinogen Urine Negative (Negative)
[2023-03-20 16:44] LABS: Renal Epithelial Cells Urine 0-5 /lpf (0-5)
[2023-03-20] MEDS ORDERED: PENICILLIN GK 6 MU in DEXTROSE 5% 250 ML IV STA (17:06)
[2023-03-20] MEDS ORDERED: LIDOCAINE 1% LOCAL 20 ML VIAL INFIL PRN (17:06)
[2023-03-20] MEDS ORDERED: OXYTOCIN 30 UNITS/NSS 30 UNITS/500 ML BAG IV PRN ×2 (17:06)
[2023-03-20] MEDS ORDERED: LACTATED RINGER'S 1,000 ML IV PRN (17:06)
--- NOTE | 2023-03-20 17:13 | Obstetrical Progress Note ---
Date of Service March 20, 2023 Subjective Patient is reevaluated. She felt better after IV fluid bolus and then felt a gush of fluid coming and 4:35 PM, confirmed by her bedside nurse with positive nitrazine testing. heart rate was tachycardic initially, improved to category 1 with IV fluid hydration. Cervix is rechecked by myself this 3 to 4 cm, 50% effaced, -3, feels tight amniotic bag and vertex. Internal temperature feels high by digital exam. Bedside ultrasound done and confirmed vertex presentation and EFW is 3615 g. Discussed the findings of SROM at term and recommended augmentation of labor with Pitocin per protocol. GBS positive, Plan to admit, IV fluids, IV penicillin for GBS and Pitocin per protocol. All questions were answered. Results & Data Vital Signs (Past 12 Hours) Vital Signs Temp Pulse Resp BP 03/20/23 15:51 98 H 138/86 03/20/23 14:33 37.7 C H 130 H 20 127/90 03/20/23 14:25 37.7 C H 131 H 127/90
--- NOTE | 2023-03-20 19:29 | Obstetrical Progress Note ---
Date of Service March 20, 2023 Assessment & Plan Admission and Anticipated Discharge Date Admission Date: March 20, 2023 Subjective Patient is reevaluated Contractions are getting more painful Still LOF clear No fever/ chills/ N&V She declined pain meds and does not want epidural. Prefers to stand next to bedside. Repeat temp was 37.2 and 36.7 1st dose of PCN was given. FHR between categ I and episodes of catg II with brief short lasting variable decels with quick recovery [place] ctxs q 3-4 min, Oxytocin is at 6 miu/min VE; unchanged, 3-4 cm/ 50%/ -2, tight forebag AROM'ed Discussed pain management and what to expect Continue to monitor closely. Results & Data Vital Signs (Past 12 Hours) Vital Signs Temp Pulse Resp BP 03/20/23 19:02 36.7 C 115 H 18 154/71 H 03/20/23 18:50 111 H 150/81 H 03/20/23 18:35 111 H 153/88 H 03/20/23 18:21 114 H 150/73 H 03/20/23 18:06 109 H 153/85 H 03/20/23 17:35 116 H 145/90 H 03/20/23 17:20 120 H 134/74 03/20/23 16:46 37.2 C 03/20/23 15:51 98 H 138/86 03/20/23 14:33 37.7 C H 130 H 20 127/90 03/20/23 14:25 37.7 C H 131 H 127/90
[2023-03-20] MEDS ORDERED: LIDOCAINE 2%/EPINEPHRINE 1:200,000 20 ML PF ONE (19:50)
[2023-03-20] MEDS ORDERED: BUPIVACAINE 0.25% PF 30 ML VIAL ONE (19:50)
[2023-03-20] MEDS ORDERED: ePHEDrine sulfate 50 MG/ML AMP ONE (19:50)
[2023-03-20] MEDS ORDERED: fentANYL 2 MCG/ML BUPIVacaine 0.125%-NSS 100ML BAG ONE (19:50)
[2023-03-20] MEDS ORDERED: SODIUM CHLORIDE 0.9% PF INJ 10 ML VIAL ONE (19:50)
[2023-03-20] MEDS ORDERED: fentaNYL citrate PF 100 MCG/2 ML VIAL ONE (19:50)
--- NOTE | 2023-03-20 20:02 | Anesthesiology Consultation ---
Date of Service March 20, 2023 Assessment & Plan (1) Encounter for pre-operative examination: Chart Review Chart Review: Acceptable Risk for Labor Epidural History Height/Weight Height: 5 ft 4 in Weight: 95.708 kg Allergies Allergy/AdvReac Type Severity Reaction Status Date / Time prednisone AdvReac Nausea Verified 03/11/23 00:53 Medications Home Medications Medication Instructions Recorded Confirmed Last Taken ondansetron 4 mg disintegrating 4 mg PO Q6H PRN nausea and 08/08/22 03/11/23 01/20/23 tablet vomiting #20 tabs famotidine 20 mg tablet 20 mg PO HS 01/21/23 03/11/23 03/10/23 omeprazole 40 mg capsule,delayed 40 mg PO QAM 01/21/23 03/11/23 01/20/23 release pediatric multivitamin no.76 1 tab PO DAILY 03/11/23 03/11/23 03/10/23 (Flintstones Complete chewable tablet) Active Medications Generic Name Dose Route Start Last Admin Trade Name Freq PRN Reason Stop Dose Admin Dextrose/Lactated Ringer's 1,000 mls @ 500 mls/hr 03/20/23 15:45 03/20/23 17:10 D5w And Lactated Ringers IV 04/19/23 15:44 500 mls/hr .Q2H HUI Administration Oxytocin 30 units in 500 mls @ 6 mls/hr 03/20/23 17:06 03/20/23 19:07 Pitocin 30 Units/Nss IV 03/22/23 17:05 0.36 units/hr .Q24H PRN 6 mls/hr Labor Induction/Augmentation Titration Protocol 0.36 UNITS/HR Lactated Ringer's 1,000 mls @ 150 mls/hr 03/20/23 17:06 03/20/23 19:01 Lr IV 03/22/23 17:05 150 mls/hr .Q6H40M PRN Infusion L&D Protocol Protocol Past Medical History Medical History (Updated 03/20/23 @ 20:02 by Marcello Melendrez MD) Vestibular migraine Dizziness Migraine Cephalgia Asthma Past Family History Family History Father Hypertension Grandmother Heart disease Other Allergies Family history non-contributory Hearing loss of aging Past Surgical History Surgical History No pertinent past surgical history S/P adenoidectomy Hx of tonsillectomy Social History Smoking Status: Never smoker Do You Dip or Chew Tobacco: No Hx Alcohol Use: No Hx Substance Use: No substance use type: does not use Physical Exam Vital Signs Last Vital Signs Temp 36.7 C 03/20/23 19:02 Pulse 123 H 03/20/23 19:56 Resp 18 03/20/23 19:02 BP 154/71 H 03/20/23 19:02 Pulse Ox 98 03/20/23 19:56 Testing Laboratory Results 03/20/23 15:10 03/20/23 15:10 Urine Color Yellow 03/20/23 16:10 Urine Appearance Clear (Clear) 03/20/23 16:10 Urine pH 8.0 (4.5-7.5) H 03/20/23 16:10 Ur Specific [place] 1.020 (1.000-1.030) 03/20/23 16:10 Urine Protein Negative (Negative) 03/20/23 16:10 Urine Glucose (UA) Negative (Negative) 03/20/23 16:10 Urine Ketones Negative (Negative) 03/20/23 16:10 Urine Nitrite Negative (Negative) 03/20/23 16:10 Ur Leukocyte Esterase Trace (Negative) H 03/20/23 16:10 Urine WBC (Auto) 1-5 /hpf (0-5) 03/20/23 16:10 Urine RBC (Auto) 0-4 /hpf (0-4) 03/20/23 16:10 U Hyaline Cast (Auto) 1-5 /lpf (0-5) 03/20/23 16:10 U Epithel Cells (Auto) >30 /lpf (0-5) H 03/20/23 16:10 Urine Bacteria (Auto) Negative (Negative) 03/20/23 16:10
[2023-03-20] MEDS ORDERED: PENICILLIN GK 3 MU in DEXTROSE 5% 100 ML IV PRN (20:06)
[2023-03-20] MEDS ORDERED: NALOXONE HCL 0.4 MG/1 ML VIAL/CARP IV PRN (20:32)
[2023-03-20] MEDS ORDERED: ROPIVACAINE 0.5% PF 5 MG/ML 20 ML VIAL EPI PRN (20:32)
[2023-03-20] MEDS ORDERED: BUPIVACAINE 0.25% PF 30 ML VIAL EPI STA (20:32)
[2023-03-20] MEDS ORDERED: LIDOCAINE 2%/EPINEPHRINE 1:200,000 20 ML PF EPI STA (20:32)
[2023-03-20] MEDS ORDERED: fentaNYL citrate PF 100 MCG/2 ML VIAL EPI PRN (20:32)
[2023-03-20] MEDS ORDERED: SODIUM CHLORIDE 0.9% PF INJ 10 ML VIAL EPI STA (20:32)
[2023-03-20] MEDS ORDERED: NALOXONE HCL 1 MG in SODIUM CHLORIDE 0.9% 1,000 ML IV PRN (20:32)
[2023-03-20] MEDS ORDERED: fentaNYL citrate PF 100 MCG/2 ML VIAL EPI STA (20:32)
[2023-03-20] MEDS ORDERED: ePHEDrine sulfate 50 MG/ML AMP IV PRN (20:32)
[2023-03-20] MEDS ORDERED: fentANYL 2 MCG/ML BUPIVacaine 0.125%-NSS 100ML BAG EPI PRN (20:32)
[2023-03-20] MEDS ORDERED: BUPIVACAINE 0.25% PF 30 ML VIAL EPI PRN (20:32)
[2023-03-20] MEDS ORDERED: ONDANSETRON INJ 2 MG/ML 2 ML VIAL IV PRN (20:32)
[2023-03-20] MEDS ORDERED: SODIUM CHLORIDE 0.9% PF INJ 10 ML VIAL EPI PRN (20:32)
[2023-03-20] MEDS ORDERED: LIDOCAINE 2% MPF LOCAL 5 ML VIAL EPI PRN (20:32)
[2023-03-20] MEDS ORDERED: ACETAMINOPHEN 500 MG TAB PO PRN (20:58)
[2023-03-20] MEDS ORDERED: diphenhydrAMINE Capsule 25 MG CAP PO PRN (20:58)
[2023-03-20] MEDS ORDERED: LORazepam 0.25 MG in SYRINGE 0.125 ML IV PRN (21:29)
--- NOTE | 2023-03-20 21:38 | Obstetrical Progress Note ---
Date of Service March 20, 2023 Assessment & Plan Admission and Anticipated Discharge Date Admission Date: March 20, 2023 Subjective Patient has been very anxious about labor and epidural. She declined pain medications and epidural earlier. She could not tolerate pain and asked for epidural. It helped for labor pains and contractions but she started to be become shaky and MAZARIEGOS. She feels like her head is spinning and not feeling her vagina makes her more anxious. She has h/o anxiety and panic attacks and usually could control with breathing methods. She was prescribed some meds by alessia PCP but they did not help and has not been using anything. She does not like meds. She has MAZARIEGOS now. VSS Afebrile She is visibly anxious. Neurologic exam, Cr II-X11 normal No motor nor sensory deficiency noted. VE; 4/ 60%/ -2, head is becoming coned shaped, clear fluid coming FHR categ I Discussed labor and what to expect. She states she wants to have baby sooner than later and that will help for her anxiety but she does not want C section. Offered her Psychiatry consult but declined. She does not want medications. She agreed for Tylenol. Continue to monitor closely. Results & Data Vital Signs (Past 12 Hours) Vital Signs Temp Pulse Resp BP Pulse Ox 03/20/23 21:26 112 H 99 03/20/23 21:21 123 H 100 03/20/23 21:17 115 H 133/73 03/20/23 21:16 113 H 100 03/20/23 21:11 111 H 99 03/20/23 21:06 114 H 97 03/20/23 21:01 98 03/20/23 21:01 119 H 03/20/23 21:01 118 H 135/74 03/20/23 20:56 20 03/20/23 20:56 36.6 C 20 03/20/23 20:56 99 03/20/23 20:56 105 H 03/20/23 20:56 105 H 123/66 03/20/23 20:51 117 H 99 03/20/23 20:50 116 H 132/81 03/20/23 20:46 122 H 130/70 99 03/20/23 20:43 104 H 131/71 03/20/23 20:41 117 H 98 03/20/23 20:40 109 H 130/72 03/20/23 20:37 118 H 133/77 03/20/23 20:36 118 H 99 03/20/23 20:34 121 H 146/74 H 03/20/23 20:32 110 H 145/73 H 03/20/23 20:31 99 03/20/23 20:31 123 H 03/20/23 20:31 90 136/87 03/20/23 20:28 112 H 133/80 03/20/23 20:26 115 H 99 03/20/23 20:21 141 H 99 03/20/23 20:16 127 H 99 03/20/23 20:11 128 H 98 03/20/23 20:06 106 H 99 03/20/23 20:03 122 H 185/82 H 03/20/23 20:01 109 H 99 03/20/23 19:56 123 H 98 03/20/23 19:02 36.7 C 115 H 18 154/71 H 03/20/23 18:50 111 H 150/81 H 03/20/23 18:35 111 H 153/88 H 03/20/23 18:21 114 H 150/73 H 03/20/23 18:06 109 H 153/85 H 03/20/23 17:35 116 H 145/90 H 03/20/23 17:20 120 H 134/74 03/20/23 16:46 37.2 C 03/20/23 15:51 98 H 138/86 03/20/23 14:33 37.7 C H 130 H 20 127/90 03/20/23 14:25 37.7 C H 131 H 127/90
--- NOTE | 2023-03-20 23:30 | Obstetrical Progress Note ---
Date of Service March 20, 2023 Assessment & Plan Admission and Anticipated Discharge Date Admission Date: March 20, 2023 Subjective Patient is reevaluated. She feels better, MAZARIEGOS has resolved, no more dizziness. ECG sinus rhythm, VR 98 beat/min Anxiety is better, trying to sleep but could not, offered her Benadryl but declined FHR categ I early decels with some contractions with quick recovery, moderate variability and accels present Continue to monitor closely Results & Data Vital Signs (Past 12 Hours) Vital Signs Temp Pulse Resp BP Pulse Ox 03/20/23 23:26 117 H 99 03/20/23 23:21 113 H 98 03/20/23 23:18 99 H 150/79 H 03/20/23 23:16 97 H 99 03/20/23 23:11 107 H 100 03/20/23 23:06 113 H 100 03/20/23 23:03 113 H 129/84 03/20/23 23:01 113 H 94 03/20/23 22:56 107 H 100 03/20/23 22:51 101 H 99 03/20/23 22:47 114 H 125/68 03/20/23 22:46 109 H 99 03/20/23 22:41 105 H 99 03/20/23 22:36 20 03/20/23 22:36 36.6 C 106 H 20 99 03/20/23 22:33 108 H 139/76 03/20/23 22:31 100 H 100 03/20/23 22:26 109 H 100 03/20/23 22:22 101 H 92 03/20/23 22:21 102 H 99 03/20/23 22:16 102 H 161/76 H 99 03/20/23 22:11 110 H 100 03/20/23 22:06 106 H 100 03/20/23 22:01 105 H 98 03/20/23 21:56 104 H 100 03/20/23 21:51 115 H 100 03/20/23 21:48 120 H 153/70 H 03/20/23 21:46 119 H 99 03/20/23 21:41 112 H 99 03/20/23 21:36 117 H 100 03/20/23 21:32 108 H 128/62 03/20/23 21:31 107 H 100 03/20/23 21:26 112 H 99 03/20/23 21:21 123 H 100 03/20/23 21:17 115 H 133/73 03/20/23 21:16 113 H 100 03/20/23 21:11 111 H 99 03/20/23 21:06 114 H 97 03/20/23 21:01 98 03/20/23 21:01 119 H 03/20/23 21:01 118 H 135/74 03/20/23 20:56 20 03/20/23 20:56 36.6 C 20 03/20/23 20:56 99 03/20/23 20:56 105 H 03/20/23 20:56 105 H 123/66 03/20/23 20:51 117 H 99 03/20/23 20:50 116 H 132/81 03/20/23 20:46 122 H 130/70 99 03/20/23 20:43 104 H 131/71 03/20/23 20:41 117 H 98 03/20/23 20:40 109 H 130/72 03/20/23 20:37 118 H 133/77 03/20/23 20:36 118 H 99 03/20/23 20:34 121 H 146/74 H 03/20/23 20:32 110 H 145/73 H 03/20/23 20:31 99 03/20/23 20:31 123 H 03/20/23 20:31 90 136/87 03/20/23 20:28 112 H 133/80 03/20/23 20:26 115 H 99 03/20/23 20:21 141 H 99 03/20/23 20:16 127 H 99 03/20/23 20:11 128 H 98 03/20/23 20:06 106 H 99 03/20/23 20:03 122 H 185/82 H 03/20/23 20:01 109 H 99 03/20/23 19:56 123 H 98 03/20/23 19:02 36.7 C 115 H 18 154/71 H 03/20/23 18:50 111 H 150/81 H 03/20/23 18:35 111 H 153/88 H 03/20/23 18:21 114 H 150/73 H 03/20/23 18:06 109 H 153/85 H 03/20/23 17:35 116 H 145/90 H 03/20/23 17:20 120 H 134/74 03/20/23 16:46 37.2 C 03/20/23 15:51 98 H 138/86 03/20/23 14:33 37.7 C H 130 H 20 127/90 03/20/23 14:25 37.7 C H 131 H 127/90
[2023-03-20] MEDS ORDERED: MINERAL OIL 30 ML UDC ONE (23:52)
[2023-03-21] MEDS ORDERED: OXYTOCIN 30 UNITS/NSS 30 UNITS/500 ML BAG IV PRN (00:27)
[2023-03-21] MEDS ORDERED: MEASLES, MUMPS & RUBELLA VIRUS VACCINE (MMR) VIAL SQ ONE (00:27)
[2023-03-21] MEDS ORDERED: HYDROCORTISONE ACETATE 25 MG SUPP PR PRN (00:27)
[2023-03-21] MEDS ORDERED: DIPHTHER/TETAN/PERTUS Vaccine (Tdap, Adol/Adult) 0.5mL IM ONE (00:27)
[2023-03-21] MEDS ORDERED: oxyCODONE/ACETAMINOPHEN 5mg/325mg TAB PO PRN (00:27)
[2023-03-21] MEDS ORDERED: BENZOCAINE 20% SPRY 85 APPLN/85 GM CAN EXT PRN (00:27)
--- NOTE | 2023-03-21 00:32 | Delivery Summary ---
Vaginal Delivery Summary Date of Service March 21, 2023 Vaginal Delivery Summary Patient was found to be fully dilated and desired to push. She pushed for about 15 min and delivered the head and then shoulders with minimal traction at 23:59. The baby was handed off to the mother. The cord was clampedx2 and cut at 1 minute. The vagina and perineum were checked and found to have 1st degree perineal and right superficial labial lacerations. Those were repaired with 3-0 Vicryl on SH needle. There was a right labial laceration which was extending into right upper labia about 1-2 cm. It was repiarted with 2/0 Vicryl. Excellent hemostasis was achieved. The placenta was delivered spontaneously as intact and complete. The uterus was explored and found to be empty. EBL was 200 ml. The fundus was firm The baby was a viable female , Apgars 8/8, the weight is pending The mother and the baby tolerated the procedure well. No complications happened and I was present during whole procedure.
[2023-03-21] MEDS: IBUPROFEN 600 MG TAB PO PRN ×5 (00:48→20:28)
[2023-03-21] MEDS ORDERED: CALCIUM CARBONATE 500 MG CHEWABLE TAB PO PRN (01:03)
[2023-03-21] MEDS ORDERED: ONDANSETRON 4 MG OD TAB PO PRN (01:20)
--- NOTE | 2023-03-21 02:08 | Anesthesia Procedure Note ---
Date of Service March 21, 2023 Anesthesia Post Epidural Note Vital Signs Vital Signs: Temp Pulse Resp BP Pulse Ox 36.6 C 103 H 20 124/90 100 03/20/23 22:36 03/21/23 02:06 03/21/23 01:51 03/21/23 02:06 03/21/23 00:21 Notes Mental Status: alert / awake / arousable and participated in evaluation Nausea / Vomiting: adequately controlled Pain: adequately controlled Airway Patency, RR, SpO2: stable & adequate BP & HR: stable & adequate Hydration State: stable & adequate Neuraxial Anesthesia: was administered and sensory block is resolving Anesthetic Complications: no major complications apparent Epidural: Removed without complications and With tip intact
[2023-03-21] MEDS: FAMOTIDINE 20 MG TAB PO SCH ×2 (05:50→08:03)
[2023-03-21] MEDS: DOCUSATE SODIUM 100 MG CAP PO SCH ×2 (08:03→19:44)
[2023-03-21] MEDS: FERROUS SULFATE 325 MG TAB PO SCH (08:03)
[2023-03-21] MEDS: PRENATAL VITAMIN 1 TAB PO SCH (08:23)
--- OUTSIDE RECORDS SUMMARY | 2023-03-21 10:53 | External Medical Summary | Summary of Care ---
Author Name Unknown Organization [facility] Address [address] [place] [address] Phone [phone] Care Team Providers Care Nurse Clinical Name Role Phone Trina Enciso PA-C Primary Care Provider [phone] Reason for Visit * Reason Comments [facility] Return Encounter Details Date Type Department Care Team (Late st Contact Info) Description 03/13/2023 11:30 AM EST Office Visit Gynecology/Obstetri alysia Ch [address] [facility] [place] [address] Alina Fairbanks CRNP [address] [place] [address] Nurse Dima [facility] [place] [address] [place] [address] Normal in third trimester*; Maternal asthma complicating Allergies Active Allergy Reactions Criticality Noted Date Comments Prednisone 10/03/2021 documented as of this encounter (statuses as of 03/13/2023) Medications Medication Sig Dispensed Refills Start Date End Date Status Acetaminophen 500 MG Oral Tablet (Tylenol) 2 Tablets. 0 11/18/2021 Act rubi Ondansetron 4 MG Oral Tablet Disintegrating (Zofran)Indications:N ausea and vomiting, unspecified vomiting type Place 1 Tablet on tongue every 8 hours as needed for Nausea. dissolve on tongue. 30 Tablet 11 07/19/2022 Active Flintstones w/Iron 18 MG Oral Tablet Chewable Take 1 Tablet by mouth in the morning. 0 Active Fluticasone Propionate 50 MCG/ACT Nasal Suspension (Flonase)Indications: Acute sinusitis, recurrence not specified, unspecified location,Acute dysfunction of both eustachian tubes Administer 2 Sprays into each nostril in the morning. 16 g 0 09/26/2022 Active Famotidine 20 MG Oral Tablet (Pepcid)Indications:G astroesophageal reflux disease without esophagitis Take 1 Tablet by mouth in the morning and 1 Tablet before bedtime. 180 Tablet 1 11/29/2022 Active Omeprazole 40 MG Oral Capsule Delayed Release (PriLOSEC)Indications :Gastroesophageal reflux disease without esophagitis Take 1 Capsule by mouth in the morning. 1 hour before the first meal of the day. 30 Capsule 5 12/11/2022 Active diphenhydrAMINE HCl 12.5 MG/5ML Oral Elixir (Benadryl)Indications :Nausea and vomiting in Take 5 mL by mouth every 6 hours as needed for Allergies or Nausea. 180 mL 1 12/24/2022 Active Breast Pump Dispense double electric breast pump. Dx Z39.1 1 Each 0 01/08/2023 Active Iron-Vitamin C 65-125 MG Oral Tablet (Vitron C)Indications:Antepar francisco anemia complicating Take 1 Tablet by mouth in the morning. 60 Tablet 3 01/13/2023 Active ProAir HFA 108 (90 Base) MCG/ACT Inhalation Aerosol SolutionIndications:M ild intermittent asthma without complication Inhale 2 Puffs by mouth every 4 hours as needed for Wheezing. 18 g 3 02/03/2023 Active documented as of this encounter (statuses as of 03/13/2023) Active Problems Problem Noted Date Diagnosed Date Positive GBS test 03/06/2023 Normal 09/17/2022 Maternal asthma complicating 3 Health counseling 08/14/2022 Overview: Problem Action Taken Date entered Entered by Date resolved Need for food assistance referred to [facility] and Command Information 08/14/2022 Rosa Lowe RN 08/14/2022 Problem Action Taken Date entered Entered by Date resolved 1st trimester education Given 08/14/2022 Rosa Lowe RN 08/14/2022 Problem Action Taken Date entered Entered by Date resolved Current needs or questions Patient denies having any current needs or questions 10/10/2022 Rosa Lowe RN 10/10/2022 Problem Action Taken Date entered Entered by Date resolved Current needs or questions Patient denies having any current needs or questions 11/14/2022 Rosa Lowe RN 11/14/2022 Problem Action Taken Date entered Entered by Date resolved Current needs or questions Patient denies having any current needs or questions 01/08/2023 Michelle Salgado RN 01/08/2023 Problem Action Taken Date entered Entered by Date resolved Current needs or questions Patient denies having any current needs or questions 01/21/2023 Rosa Lowe RN 01/21/2023 Problem Action Taken Date entered Entered by Date resolved Current needs or questions Patient denies having any current needs or questions 03/13/2023 Rosa Lowe RN 03/13/2023 Complicated migraine 08/02/2022 Nausea and vomiting 08/02/2022 Chest tightness 08/02/2022 SUMA (generalized anxiety disorder) 02/28/2021 Insomnia 02/28/2021 Other specified cardiac arrhythmias 11/23/2020 Uncomplicated asthma 11/23/2020 Numbness and tingling 07/19/2016 Esophageal reflux 10/31/2006 Chronic sinusitis 08/04/2001 Estimated Date of Delivery Comme nts Yes 03/31/2023 Based on Ultraso und documented as of this encounter (statuses as of 03/13/2023) Resolved Problems Problem Noted Date Diagnosed Date Resolved Date Vomiting associated with bul imia nervosa with nausea 08/02/2022 08/09/2022 Hemorrhagic ovarian cyst 07/31/2021 LLQ pain 07/31/2021 01/22/2023 Costochondritis, acute 04/06/202102/19 Nonintractable epilepsy with out status epilepticus 11/23/2020 04/06/2021 Respiratory symptoms 08/04/2001 021 Overview: ICD-10 update of inactive term documented as of this encounter (statuses as of 03/13/2023) Immunizations Name Administration Dates Next Due DTaP Dipth/Tet/Acell Pertussis (Infanrix), Peds 07/02/2004,06/18/2001,08/13/1999,06/06,03/08/1999 H1N1 2009 Influenza, IM 12/20/2008 HIB Hep B - HIB Hepatitis B (Comvax) 04/25/2000, 06/07/1999,03/08/1999 HPV Vaccine, 4-Valent 12/07/2012,03/25/2012,10/18 Hep A - Hepatitis A (ped/ado le, 1-18 Yrs) 03/25/2012,11/05/2010 IPV - Polio Virus Vaccine (Inact) 2004,06/18/2001,06/07/1999,03/08 MMR - Measles/Mumps/Rubella Vaccine 07/02/2004,0 04/25/2000 Meningococcal MCV4O Conjugat e Vaccine (Menveo) 10/08/2016 Meningococcal MCV4P Conjugat e Vaccine (Menactra) 10/08/2016,10/15/2010 PPD 04/20/2019 Pneumococcal Conjugate Vacci ne, 7 Valent 06/18/2001,04/25/2000,08/13/1999,06/06 Seasonal Influenza, QUAD, wi th Preserv, 6 mons & Above, 0.5 mL, IM 11/24/2012,11/25/2003,01/28/2002 Seasonal Influenza, Quadrivalent, ID 11/21/2008 TDAP (age 10 and older)(Boostrix) 10/15/2010 Varicella Vaccine (Chicken Pox) 12/31/2006,04/25 documented as of this encounter Social History Tobacco Use Types Packs/Day Years Used Date Smoking Tobacco: Never Smokeless Tobacco: Never Alcohol Use Standard Drinks/Week Comments Not Currently 0 (1 standard drink = 0.6 oz pur e alcohol) PHQ-2 Answer Date Recorded PHQ Adult Total Score 0 06/05/2022 Hunger Vital Sign Answer Date Recorded Within the past 12 months, y ou worried that your food would run out before you got the money to buy more. Never true 06/06/19 23 Within the past 12 months, t he food you bought just didn't last and you didn't have money to get more. Never true 06/05/2022 [place] Depression Scale Answer Date Recorded [place] Depression Scale Total 0 02/18/2023 The thought of harming myself has occurred to me . Never 02/18/2023 Estimated Date of Delivery Comme nts Yes 03/31/2023 Based on Ultraso und Sex and Gender Information Value Date Recorded Sex Assigned at Female 06/05/2022 2:46 PM EDT Gender Identity Female 06/05/2022 2:46 PM EDT Sexual Orientation Straight 01/29/2021 10 :13 AM EST Job Start Date Occupation Industry Not on file Not on file Not on file documented as of this encounter Last Filed Vital Signs Vital Sign Reading Time Taken Comments Blood Pressure 126/72 03/13/2023 11:45 AM EST Pulse - - Temperature - - Respiratory Rate - - Oxygen Saturation - - Inhaled Oxygen Concentration - - Weight 94.3 kg (208 lb) 03/13/2023 11:45 AM EST Height 165.1 cm (5' 5") 03/13/2023 11:45 AM EST Body Mass Index 34.61 03/13/2023 11:45 AM EST documented in this encounter Progress Notes * Alina Fairbanks CRNP - 03/13/2023 12:01 PM EST 37w3d Discharge is thicker, but no s/s of infection. Has had diarrhea since Friday but not feeling sick. Encouraged adequate hydration. Was at ED a few days ago with elevated BP at home. Was given tylenol in ED and sent home. BP fine today, and has been throughout . Baby is active. No contractions, but noticing some cramping. Denies bleeding or LOF. Would like cervical check. 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 Name of mining machinery assembler: ANYA Uriostegui documented in this encounter Nursing Notes * Roas Lowe RN - 03/13/2023 11:52 AM EST Patient seen by [facility] Paleontologist. Patient denies any questions or concerns. Rosa Lowe, RN * Maryann Guzman LPN - 03/13/2023 11:45 AM EST 37w3d Was at [facility] L[facility]D Friday with elevated BP. Was given APAP and sent home. Would like cervical check today. documented in this encounter Plan of Treatment Upcoming Encounters Date Type Department Care Team (Late st Contact Info) Description 03/19/2023 3:00 PM EST Office Visit Gynecology/Obstetrics [facility] [address] [place] [address] Alina Fairbanks CRNP [address] [place] [address] Nurse Dima [facility] [place] [address] [place] [address] 03/28/2023 9:15 AM EST Office Visit Gynecology/Obstetrics [facility] [address] [place] [address] Alina Fairbanks CRNP [address] [place] [address] Nurse Dima [facility] [address] [place] [address] Health Maintenance Due Date Last Done Comments COVID-19 Vaccine (#1) 06/28/1999 Pneumococcal Vaccine: Pediat rics (0 to 5 Years) and At-Risk Patients (6 to 64 Years) (1 - PCV) 2004 DTaP,Tdap,and Td Vaccines (7 - Td or Tdap) 10/15/2020 10/15/2010, 07/02/2004, 06/18/2001, Additional history exists *SPIROMETRY ONCE FOR ASTHMA-ADULT 01/10/2022 Influenza Vaccine (FLU shot) (#1) 2022 11/24/2012, 12/20/2008, 11/21/2008, Additional history exists Depression Screening 06/06/2023 06/05/2022 Gonorrhea / Chlamydia Screen 08/15/2023 08/14/2022, 09/19/2020 Pap Smear 03/07/2024 03/07/2021 Hepatitis B Completed 04/25/2000, 05/19, 03/08/1999 GARDASIL-HPV IMMUNIZATION SERIES Completed 12/07/2012, 03/25/2012, 11/05/2010 MENINGOCOCCAL (MENACTRA/MENVEO) Completed 10/08/2016, 10/08/2016, 10/15/2010 documented as of this encounter Medical Devices Not on filedocumented as of this encounter Visit Diagnoses Diagnosis Normal in third trimester- Primary Maternal asthma complicating Other current maternal conditions classifiable elsewhere, complicating , childbirth, or the puerperium, unspecified as to episode of care documented in this encounter Care Teams Nurse Clinical Relationship Specialty Start Date End Date Trina Enciso PA-C [address] [facility] [place] [address] PCP - General Physician Lineman Service Or Work Dispatcher 02/09/20 documented as of this encounter
--- OUTSIDE RECORDS SUMMARY | 2023-03-21 10:53 | External Medical Summary | Summary of Care ---
Author Name Unknown Organization [facility] Address [address] [place] [address] Phone [phone] Care Team Providers Care Inside Sales Professional Name Role Phone Trina Enciso PA-C Primary Care Provider [phone] Reason for Visit * Reason Comments Return Visit Encounter Details Date Type Department Care Team (Late st Contact Info) Description 03/19/2023 3:00 PM EST Office Visit Gynecology/Obstetri alysia Ch [address] [facility] [place] [address] Alina Fairbanks CRNP [address] [place] [address] Nurse Dima [facility] [place] [address] [place] [address] Normal in third trimester*; Maternal asthma complicating Allergies Active Allergy Reactions Criticality Noted Date Comments Prednisone 10/03/2021 documented as of this encounter (statuses as of 03/19/2023) Medications Medication Sig Dispensed Refills Start Date End Date Status Acetaminophen 500 MG Oral Tablet (Tylenol) 2 Tablets. 0 11/18/2021 Active Ondansetron 4 MG Oral Tablet Disintegrating (Zofran)Indications :Nausea and vomiting, unspecified vomiting type Place 1 Tablet on tongue every 8 hours as needed for Nausea. dissolve on tongue. 30 Tablet 11 07/19/2022 Active Flintstones w/Iron 18 MG Oral Tablet Chewable Take 1 Tablet by mouth in the morning. 0 Active Fluticasone Propionate 50 MCG/ACT Nasal Suspension (Flonase)Indication s:Acute sinusitis, recurrence not specified, unspecified location,Acute dysfunction of both eustachian tubes Administer 2 Sprays into each nostril in the morning. 16 g 0 09/26/2022 Active Famotidine 20 MG Oral Tablet (Pepcid)Indications :Gastroesophageal reflux disease without esophagitis Take 1 Tablet by mouth in the morning and 1 Tablet before bedtime. 180 Tablet 1 11/29/2022 Active diphenhydrAMINE HCl 12.5 MG/5ML Oral Elixir (Benadryl)Indicatio ns:Nausea and vomiting in Take 5 mL by mouth every 6 hours as needed for Allergies or Nausea. 180 mL 1 12/24/2022 Active Breast Pump Dispense double electric breast pump. Dx Z39.1 1 Each 0 01/08/2023 Active ProAir HFA 108 (90 Base) MCG/ACT Inhalation Aerosol SolutionIndications :Mild intermittent asthma without complication Inhale 2 Puffs by mouth every 4 hours as needed for Wheezing. 18 g 3 02/03/2023 Active Omeprazole 40 MG Oral Capsule Delayed Release (PriLOSEC)Indicatio ns:Gastroesophageal reflux disease without esophagitis Take 1 Capsule by mouth in the morning. 1 hour before the first meal of the day. 30 Capsule 5 12/11/2022 4 Discontinue d(Medicatio n List Clean Up) Iron-Vitamin C 65-125 MG Oral Tablet (Vitron C)Indications:Antep artum anemia complicating Take 1 Tablet by mouth in the morning. 60 Tablet 3 01/13/2023 4 Discontinue d(Medicatio n List Clean Up) documented as of this encounter (statuses as of 03/19/2023) Active Problems Problem Noted Date Diagnosed Date Positive GBS test 03/06/2023 Normal 09/17/2022 Maternal asthma complicating 3 Health counseling 08/14/2022 Overview: Problem Action Taken Date entered Entered by Date resolved Need for food assistance referred to [facility] and local food roberts 08/14/2022 Rosa Loew RN 08/14/2022 Problem Action Taken Date entered [...] as of this encounter (statuses as of 03/19/2023) Resolved Problems Problem Noted Date Diagnosed Date Resolved Date Vomiting associated with bul imia nervosa with nausea 08/02/2022 08/09/2022 Hemorrhagic ovarian cyst 07/31/2021 LLQ pain 07/31/2021 01/22/2023 Costochondritis, acute 04/06/202102/19 Nonintractable epilepsy with out status epilepticus 11/23/2020 04/06/2021 Respiratory symptoms 08/04/2001 021 Overview: ICD-10 update of inactive term documented as of this encounter (statuses as of 03/19/2023) Immunizations Name Administration Dates Next Due DTaP [...] money to get more. Never true 06/05/2022 [place] Depression Scale Answer Date Recorded [place] Depression Scale Total 0 02/18/2023 The thought [...] Sign Reading Time Taken Comments Blood Pressure 120/84 03/19/2023 3:08 PM EST Pulse - - Temperature - - Respiratory Rate - - Oxygen Saturation - - Inhaled Oxygen Concentration - - Weight 95.7 kg (211 lb) 03/19/2023 3:08 PM EST Height 165.1 cm (5' 5") 03/19/2023 3:08 PM EST Body Mass Index 35.11 03/19/2023 3:08 PM EST documented in this encounter Progress Notes * Alina Fairbanks CRNP - 03/19/2023 3:31 PM EST 38w2d Baby is active. Some irregular contractions. No bleeding or LOF. Desires cervical check. Latex Caster Documentation Provider requested poultry killer. Name of poultry killer: Rosa. ANYA Landeros documented in this encounter Nursing Notes * Temitope Miguel LPN - 03/19/2023 3:07 PM EST 38w2d BP was 147/85 this morning MAZARIEGOS this morning Took tylenol and it did help Would like cervix checked documented in this encounter Plan of Treatment Upcoming Encounters Date Type Department Care Team (Late st Contact Info) Description 03/28/2023 9:15 AM EST Office Visit Gynecology/Obstetrics [facility] [address] [place] [address] Alina Fairbanks CRNP [address] [place] [address] Nurse Dima [facility] [place] [address] [place] [address] Health Maintenance Due Date Last Done Comments [...] care documented in this encounter Care Teams Inside Sales Professional Relationship Specialty Start Date End Date Trina Enciso PA-C [address] [place] [address] PCP - General Physician Ophthalmology Surgical Technician 02/09/20 documented as of this encounter
--- OUTSIDE RECORDS SUMMARY | 2023-03-21 10:53 | External Medical Summary | Summary of Care ---
Author Name Unknown Organization [facility] Address [address] [place] [address] Phone [phone] Care Team Providers Care Electronic Scale Tester Name Role Phone Trina Enciso PA-C Primary Care Provider [phone] Encounter Details Date Type Department Care Team (Late st Contact Info) Description 03/14/2023 Telephone Gynecology/Obstetrics [facility] [address] [place] [address] Sandra De Los Santos MD [address] [place] [address] Allergies Active Allergy Reactions Criticality Noted Date Comments Prednisone 10/03/2021 documented as of this encounter (statuses as of 03/17/2023) Medications Medication Sig Dispensed Refills Start Date [...] as of this encounter (statuses as of 03/17/2023) Active Problems Problem Noted Date Diagnosed Date Positive GBS test 03/06/2023 Normal 09/17/2022 Maternal asthma complicating 3 Health counseling 08/14/2022 Overview: Problem Action Taken Date entered Entered by Date resolved Need for food assistance referred to [facility] and local food roberts 08/14/2022 Rosa Lowe RN 08/14/2022 Problem Action [...] as of this encounter (statuses as of 03/17/2023) Resolved Problems Problem Noted Date Diagnosed Date Resolved Date Vomiting associated with bul imia nervosa with nausea 08/02/2022 08/09/2022 Hemorrhagic ovarian cyst 07/31/2021 LLQ pain 07/31/2021 01/22/2023 Costochondritis, acute 04/06/202102/19 Nonintractable epilepsy with out status epilepticus 11/23/2020 04/06/2021 Respiratory symptoms 08/04/2001 021 Overview: ICD-10 update of inactive term documented as of this encounter (statuses as of 03/17/2023) Immunizations Name Administration Dates Next Due DTaP [...] money to get more. Never true 06/05/2022 [place] Depression Scale Answer Date Recorded [place] Depression Scale Total 0 02/18/2023 The thought [...] on file documented as of this encounter Miscellaneous Notes * Telephone Encounter - Rosa Lowe RN - 03/17/2023 2:17 PM EST Patient called back in. Reports + FM. Patient states she is having more increased back pain that isnot relieved with Tylenol. Pelvic pain comes and goes, rates this a 5/10. Has drank 3 bottles of water today. Reports_ + vomiting/nausea. Having an increase in "thick"discharge. Denies bleeding or "gu sh" of fluid. Patient tried warm bath to relieve pain, no improvement. Advised to continue pushing fluids, Tylenol as needed and to call back with any changes. Please review further. We only have 2 providers in the office today, with no openings and both haveoverbooks already. * Telephone Encounter - Rosa Lowe RN - 03/17/2023 2:13 PM EST Attempted to call patient to see if she did a kick count. No answer, LVM to return call. * Telephone Encounter - Rosa Lowe RN - 03/17/2023 9:26 AM EST Patient calling back in today with concerns. States she is having contractions about every hour. Not consistent. No vaginal bleeding/leaking. + FM ( although she has not been up for 2 hours to + movements in 2 hours). No regular contractions. No severe pain/pressure. Patient advised to push fluids, rest. Advised to do kick count , lay on side after eating/drinking and count movement for next hour-2 hours and call us back and let us know what she gets. Advised patient to call sooner with any changes. She verbalized understanding. * Telephone Encounter - Sandra De Los Santos MD - 03/14/2023 2:35 PM EST She was \\in here L&D 2 night ago with N&V&D and denied IVF, meds Her U/A was normal Cervix closed Agree with you recommendation. Thanks * Telephone Encounter - Temitope Miguel LPN - 03/14/2023 1:52 PM EST Pt called in with having back pain and pelvic cramping since this morning. Pt denies any VB, LOF, Ctxs and baby is moving well. Pt said she did have a BM today and it didn't help with the pain pt also denies any burning with urination. I asked pt if she has tried anything to help she said no. I inst ructed pt to take tylenol and do a heating pad on her back to see if that helps if not for her to call back. Pt verbalized understanding. I told pt I will reach out to [facility] doc to see if there wasany additional recommendations for pt? Please review and advise. documented in this encounter Plan of Treatment Upcoming Encounters Date Type Department Care Team (Late st Contact Info) Description 03/19/2023 3:00 PM EST Office Visit Gynecology/Obstetrics [facility] [address] [place] [address] Alina Fairbanks CRNP [address] [place] [address] Nurse Dima [facility] [place] [address] [place] [address] 03/28/2023 9:15 AM EST Office Visit Gynecology/Obstetrics [facility] [address] [place] [address] Alina Fairbanks CRNP [address] [place] [address] Nurse Dima [facility] [place] [address] [place] [address] Health Maintenance Due Date Last Done Comments [...] Not on filedocumented as of this encounter Care Teams Electronic Scale Tester Relationship Specialty Start Date End Date Trina Enciso PA-C [address] [place] [address] [place] [address] PCP - General Physician Mold Yard Crane Operator 02/09/20 documented as of this encounter
--- OUTSIDE RECORDS SUMMARY | 2023-03-21 10:53 | External Medical Summary | Summary of Care ---
Author Name Unknown Organization [facility] Address [address] [place] [address] Phone [phone] Care Team Providers Care Mottle Lay Up Operator Name Role Phone Trina Enciso PA-C Primary Care Provider [phone] Encounter Details Date Type Department Care Team (Late st Contact Info) Description 03/14/2023 Telephone Gynecology/Obstetrics [facility] [address] [place] [address] Sandra De Los Santos MD [address] [place] [phone] Allergies Active Allergy Reactions Criticality Noted Date [...] resolved Need for food assistance referred to [facility] and local food roberts 08/14/2022 Rosa Lowe [...] money to get more. Never true 06/05/2022 [place] Depression Scale Answer Date Recorded [place] Depression Scale Total 0 02/18/2023 The thought [...] encounter Miscellaneous Notes * Telephone Encounter - Sandra De Los Santos MD - 03/17/2023 2:53 PM EST She came to L&D with similar complaints and did not want to take anything I think she wants to be delivered. If she is having contractions she can come to L&D if not she may be scheduled for IOL at 39+ weeks Thanks * Telephone Encounter - Rosa Lowe RN [...] told pt I will reach out to operations boardman doc to see if there wasany additional recommendations for pt? Please review and advise. documented in this encounter Plan of Treatment Upcoming Encounters Date Type Department Care Team (Late st Contact Info) Description 03/19/2023 3:00 PM EST Office Visit Gynecology/Obstetrics [facility] [address] [place] [address] Alina Fairbanks CRNP [address] [place] [address] Nurse Dima [facility] [place] [address] [place] [address] 03/28/2023 9:15 AM EST Office Visit Gynecology/Obstetrics [facility] [address] [place] [address] Alina Fairbanks CRNP [address] [place] [address] Nurse Dima [facility] [address] [place] [address] Health Maintenance Due Date Last Done Comments [...] filedocumented as of this encounter Care Teams Mottle Lay Up Operator Relationship Specialty Start Date End Date Trina Enciso PA-C [address] [facility] [place] [address] PCP - General Physician Slubber Machine Operator 02/09/20 documented as of this encounter
--- OUTSIDE RECORDS SUMMARY | 2023-03-21 10:53 | External Medical Summary | Summary of Care ---
Author Name Unknown Organization [facility] Address [address] [place] [address] Phone [phone] Care Team Providers Care Guest Room Attendant Name Role Phone Trina Enciso PA-C Primary Care Provider [phone] [phone] Encounter Details Date Type Department Care Team (Late st Contact Info) Description 03/14/2023 Telephone Gynecology/Obstetrics [facility] [address] [place] [address] Sandra De Los Santos MD [address] [place] [address] Allergies Active Allergy Reactions Criticality Noted Date [...] resolved Need for food assistance referred to [facility] and local food roberts 08/14/2022 Rosa [...] money to get more. Never true 06/05/2022 [place] Depression Scale Answer Date Recorded [place] Depression Scale Total 0 02/18/2023 The thought [...] not been up for 2 hours to [id number] + movements in 2 hours). No regular [...] - 03/14/2023 2:35 PM EST She was \in here L&D 2 night ago with N&V&D [...] told pt I will reach out to solar field installation crew member doc to see if there wasany additional recommendations for pt? Please review and advise. documented in this encounter Plan of Treatment Upcoming Encounters Date Type Department Care Team (Late st Contact Info) Description 03/19/2023 3:00 PM EST Office Visit Gynecology/Obstetrics [facility] [address] [place] [address] Alina Fairbanks CRNP [address] [place] [address] Nurse Maye Ch Beginningpreeti Return [facility] [address] [place] [address] 03/28/2023 9:15 AM EST Office Visit Gynecology/Obstetrics [facility] [address] [place] [address] Alina Fairbanks CRNP [address] [place] [address] Nurse Maye Ch Return [facility] [address] [place] [address] Health Maintenance Due Date Last Done Comments [...] filedocumented as of this encounter Care Teams Guest Room Attendant Relationship Specialty Start Date End Date Trina Enciso PA-C [address] [facility] [place] [address] PCP - General Physician Carburetor Expert 02/09/20 documented as of this encounter
--- OUTSIDE RECORDS SUMMARY | 2023-03-21 10:53 | External Medical Summary | Summary of Care ---
Author Name Unknown Organization [facility] Address [address] [place] [address] Phone [phone] Care Team Providers Care Crushed Stone Grader Name Role Phone Trina Enciso PA-C Primary Care Provider [phone] Reason for Visit * Reason Onset Date Comments Advice 12/16/2022 Encounter Details Date Type Department Care Team (Late st Contact Info) Description 12/16/2022 Telephone Cardiology, [facility] [address] [place] [address] Duncan Kahn, [address] [place] [address] Advice Allergies Active Allergy Reactions Criticality Noted Date [...] the day. 30 Capsule 5 12/11/2022 Active ProAir HFA 108 (90 Base) MCG/ACT Inhalation Aerosol SolutionIndications :Chest tightness,Mild intermittent asthma with exacerbation Inhale 2 Puffs by mouth every 4 hours as needed for Wheezing. 18 g 3 07/19/2022 3 Discontinue d(Refill) documented as of this encounter (statuses as of 03/17/2023) Active Problems Problem Noted Date Diagnosed Date Positive GBS test 03/06/2023 Normal 09/17/2022 Maternal asthma complicating 3 Health counseling 08/14/2022 Overview: Problem Action Taken Date entered Entered by Date resolved Need for food assistance referred to [facility] and local food roberts 08/14/2022 Rosa Lowe [...] money to get more. Never true 06/05/2022 [place] Depression Scale Answer Date Recorded [place] Depression Scale Total 0 02/18/2023 The thought [...] encounter Miscellaneous Notes * Telephone Encounter - Mini Griffiths OSA - 12/18/2022 1:11 PM EDT Patient asking for you to return her call. Patient stated she is due to return to work tomorrow. Call transferred to clinic. Thank you BILLY [place] * Telephone Encounter - Sandra Moreno OSA - 12/16/2022 1:40 PM EDT Patient asking for you to return her call. Patient stated she is due to return to work this week, wants to speak with you first documented in this encounter Plan of Treatment Upcoming Encounters Date Type Department Care Team (Late st Contact Info) Description 03/19/2023 3:00 PM EST Office Visit Gynecology/Obstetrics [facility] [address] [place] [address] Alina Fairbanks CRNP [address] [place] [address] Nurse Maye Ch Beginningpreeti Return [facility] [address] [place] [address] 03/28/2023 9:15 AM EST Office Visit Gynecology/Obstetrics [facility] [address] [place] [address] Alina Fairbanks CRNP [address] [place] [address] Nurse Maye Ch Beginningpreeti Return [facility] [address] [place] [address] Health Maintenance Due Date Last Done Comments [...] filedocumented as of this encounter Care Teams Crushed Stone Grader Relationship Specialty Start Date End Date Trina Enciso PA-C [address] [facility] [place] [address] PCP - General Physician Treater 02/09/20 documented as of this encounter
--- OUTSIDE RECORDS SUMMARY | 2023-03-21 10:53 | External Medical Summary | Summary of Care ---
Author Name Unknown Organization [facility] Address [address] [place] [address] Phone [phone] Care Team Providers Care Insurance Analyst Name Role Phone Trina Enciso PA-C Primary Care Provider [phone] Encounter Details Date Type Department Care Team (Late st Contact Info) Description 03/14/2023 Telephone Gynecology/Obstetrics [facility] [address] [place] [address] Sandra De Los Santos MD [address] [place] [address] Allergies Active Allergy Reactions Criticality Noted Date [...] resolved Need for food assistance referred to [facility] and local food roberts 08/14/2022 Rosa [...] money to get more. Never true 06/05/2022 [place] Depression Scale Answer Date Recorded [place] Depression Scale Total 0 02/18/2023 The thought [...] Encounter - Rosa Lowe RN - 03/17/2023 2:58 PM EST Patient called and made aware. States she has not had any more contractions since she spoke to me. Contractions not regular, advised if she is very uncomfortable or if contractions are occurring she can go to L and D for evaluation. Advised she call us before she go over so we can make them aware. A dvised that she call back in with any changes at all. * Telephone Encounter - Sandra De Los [...] not been up for 2 hours to [id number] + movements in 2 hours). No regular [...] told pt I will reach out to transportation refrigeration technician doc to see if there wasany additional recommendations for pt? Please review and advise. documented in this encounter Plan of Treatment Upcoming Encounters Date Type Department Care Team (Late st Contact Info) Description 03/19/2023 3:00 PM EST Office Visit Gynecology/Obstetrics [facility] [address] [place] [address] Alina Fairbanks CRNP [address] [place] [address] Nurse Dima Healthy Beginnings Return [facility] [address] [place] [address] 03/28/2023 9:15 AM EST Office Visit Gynecology/Obstetrics [facility] [address] [place] [address] Alina Fairbanks CRNP [address] [place] [address] Nurse Dima Healthy Beginnings Return [facility] [address] [place] [address] Health Maintenance Due Date Last Done Comments [...] filedocumented as of this encounter Care Teams Insurance Analyst Relationship Specialty Start Date End Date Trina Enciso PA-C [address] [facility] [place] [address] PCP - General Physician Grey Inspector 02/09/20 documented as of this encounter
--- OUTSIDE RECORDS SUMMARY | 2023-03-21 10:54 | External Medical Summary | Summary of Care ---
Author Name Unknown Organization [facility] Address [address] [place] [address] Phone [phone] Care Team Providers Care Wool Sacker Name Role Phone Trina Enciso PA-C Primary Care Provider [phone] Encounter Details Date Type Department Care Team (Late st Contact Info) Description 03/10/2023 Telephone Gynecology/Obstetrics [facility] [address] [place] [address] Sandra De Los Santos MD [address] [place] [address] Allergies Active Allergy Reactions Criticality Noted Date Comments Prednisone 10/03/2021 documented as of this encounter (statuses as of 03/11/2023) Medications Medication Sig Dispensed Refills Start Date [...] as of this encounter (statuses as of 03/11/2023) Active Problems Problem Noted Date Diagnosed Date Positive GBS test 03/06/2023 Normal 09/17/2022 Maternal asthma complicating 3 Complicated migraine 08/02/2022 Nausea and vomiting 08/02/2022 Chest tightness 08/02/2022 SUMA (generalized anxiety disorder) 02/28/2021 Insomnia 02/28/2021 Other specified cardiac arrhythmias 11/23/2020 Uncomplicated asthma 11/23/2020 Numbness and tingling 07/19/2016 Esophageal reflux 10/31/2006 Chronic sinusitis 08/04/2001 Estimated Date of Delivery Comme nts Yes 03/31/2023 Based on Ultraso und documented as of this encounter (statuses as of 03/11/2023) Resolved Problems Problem Noted Date Diagnosed Date Resolved Date Vomiting associated with bul imia nervosa with nausea 08/02/2022 08/09/2022 Hemorrhagic ovarian cyst 07/31/2021 LLQ pain 07/31/2021 01/22/2023 Costochondritis, acute 04/06/202102/19 Nonintractable epilepsy with out status epilepticus 11/23/2020 04/06/2021 Respiratory symptoms 08/04/2001 021 Overview: ICD-10 update of inactive term documented as of this encounter (statuses as of 03/11/2023) Immunizations Name Administration Dates Next Due DTaP [...] money to get more. Never true 06/05/2022 [place] Depression Scale Answer Date Recorded [place] Depression Scale Total 0 02/18/2023 The thought [...] encounter Miscellaneous Notes * Telephone Encounter - Michelle Salgado RN - 03/11/2023 8:06 AM EST Spoke with pt. She ended up going to L&D last night due to her pressure being up at home. It went down when she was there. She was told to follow up on . Her headache is better but not at100% Advised to push her fluids and if not better to call back before her appt on . * Telephone Encounter - Michelle Salgado RN - 03/11/2023 8:02 AM EST left message for patient to call office * Telephone Encounter - Sandra De Los Santos MD - 03/10/2023 8:26 PM EST Patient called with c/o N&V, Diarrhea, unable to eat and drink whole , worse today She also has Migraine MAZARIEGOS, took tylenol with no help, pain 6/10 No change in vision/ ctxs/ LOF/VB +FM I Recommended to come in to L&D for evaluation, IVF, Antiemetics but declined She wants to come in to the office tomorrow. Thank you documented in this encounter Plan of Treatment Upcoming Encounters Date Type Department Care Team (Late st Contact Info) Description 03/13/2023 11:30 AM EST Office Visit Gynecology/Obstetrics [facility] [address] [place] [address] Alina Fairbanks CRNP [address] [place] [address] Nurse Dima Healthy Beginnings Return [facility] [address] [place] [address] 03/19/2023 3:00 PM EST Office Visit Gynecology/[facility] [address] [place] [address] Alina Fairbanks CRNP [address] [place] [address] Nurse Dima Healthy Beginnings Return [facility] [address] [place] [address] 03/28/2023 9:15 AM EST Office Visit Gynecology/[facility]st[facility]s [facility] [address] [place] [address] Alina Fairbanks CRNP [address] [place] [address] Nurse Dima Healthy Beginnings Return [facility] [address] [place] [address] Health Maintenance Due Date Last Done Comments [...] filedocumented as of this encounter Care Teams Wool Sacker Relationship Specialty Start Date End Date [facility] [address] [facility] [address] PCP - General Physician Structural Manager 02/09/20 documented as of this encounter
[2023-03-21] MEDS: ACETAMINOPHEN 325 MG TAB PO PRN ×2 (12:16→19:44)
--- OUTSIDE RECORDS SUMMARY | 2023-03-21 14:03 | External Medical Summary | Summary of Care ---
Author Name Unknown Organization [facility] Address [address] [place] [address] Phone [phone] Care Team Providers Care Rotary Furnace Tender Name Role Phone Trina Enciso PA-C Primary Care Provider [phone] Encounter Details Date Type Department Care Team (Late st Contact Info) Description 03/20/2023 Telephone Gynecology/Obstetrics [facility] [address] [place] [address] Sandra De Los Santos MD [address] [place] [address] Allergies Active Allergy Reactions Criticality Noted Date Comments Prednisone 10/03/2021 documented as of this encounter (statuses as of 03/20/2023) Medications Medication Sig Dispensed Refills Start Date [...] as of this encounter (statuses as of 03/20/2023) Active Problems Problem Noted Date Diagnosed Date Positive GBS test 03/06/2023 Normal 09/17/2022 Maternal asthma complicating 3 Health counseling 08/14/2022 Overview: Problem Action Taken Date entered Entered by Date resolved Need for food assistance referred to [facility] and local food roberts 08/14/2022 Rosa [...] as of this encounter (statuses as of 03/20/2023) Resolved Problems Problem Noted Date Diagnosed Date Resolved Date Vomiting associated with bul imia nervosa with nausea 08/02/2022 08/09/2022 Hemorrhagic ovarian cyst 07/31/2021 LLQ pain 07/31/2021 01/22/2023 Costochondritis, acute 04/06/202102/19 Nonintractable epilepsy with out status epilepticus 11/23/2020 04/06/2021 Respiratory symptoms 08/04/2001 021 Overview: ICD-10 update of inactive term documented as of this encounter (statuses as of 03/20/2023) Immunizations Name Administration Dates Next Due DTaP [...] money to get more. Never true 06/05/2022 [place] Depression Scale Answer Date Recorded [place] Depression Scale Total 0 02/18/2023 The thought [...] Telephone Encounter - Rosa Lowe RN - 03/20/2023 12:00 PM EST Patient calling in with back pain. She is 38w3d . Reports constant pain since 8am rates it a 6/10, took tylenol with no relief. Tried warm bath with no relief. States she has drank 2 bottles of water so far today. Denies pelvic pain or contractions. Denies vaginal bleeding or fluid leaking.+ FM. Patient was seen in office yesterday, had cervical check, was 2 cm dilated. [facility]ations. Advised I would review with oncall for further recommendations. Advised she call back with any changes. documented in this encounter Plan of Treatment Upcoming Encounters Date Type Department Care Team (Late st Contact Info) Description 03/28/2023 9:15 AM EST Office Visit Gynecology/Obstetrics [facility] [address] [place] [address] Alina Fairbanks CRNP [address] [place] [address] Nurse Dima Healthy Beginnings Return [facility] [address] [place] [address] Health Maintenance Due Date Last Done Comments [...] filedocumented as of this encounter Care Teams Rotary Furnace Tender Relationship Specialty Start Date End Date Trina Enciso PA-C [address] [facility] [place] [address] PCP - General Physician Music Department Chair 02/09/20 documented as of this encounter
[2023-03-22] MEDS: ACETAMINOPHEN 325 MG TAB PO PRN (04:05)
--- NOTE | 2023-03-22 06:40 | Electrocardiogram Report ---
Test Reason : Blood Pressure : / mmHG Vent. Rate : 098 BPM Atrial Rate : 098 BPM P-R Int : 142 ms QRS Dur : 078 ms QT Int : 334 ms P-R-T Axes : 043 033 024 degrees QTc Int : 426 ms Normal sinus rhythm Normal ECG When compared with ECG of 24-OCT-2021 03:42, No significant change was found Confirmed by Varun Sims ([id number]) on 03/22/2023 6:39:43 AM Referred By: Sandra Cadet Confirmed By:Varnu Sims
[2023-03-22 06:41] LABS: Hematocrit (blood only) 29.9 % (37.0-47.0); Hemoglobin 10.3 g/dl (12.0-16.0); Mean Corpuscular Hemoglobin 30.5 pg (25.0-34.0); Mean Corpuscular Hgb Conc 34.4 g/dL (32.0-36.0); Mean Corpuscular Volume 88.5 fL (80.0-100.0); Platelet Count 256 K/uL (130-400); RDW Standard Deviation 41.6 fL (36.4-46.3); Red Blood Count 3.38 M/uL (4.20-5.40); White Blood Count 13.92 K/ul (4.8-10.8)
[2023-03-22] MEDS: PRENATAL VITAMIN 1 TAB PO SCH (07:55)
[2023-03-22] MEDS: IBUPROFEN 600 MG TAB PO PRN ×2 (07:55→12:50)
[2023-03-22] MEDS: FERROUS SULFATE 325 MG TAB PO SCH (07:55)
[2023-03-22] MEDS: DOCUSATE SODIUM 100 MG CAP PO SCH (07:55)
[2023-03-22] MEDS: FAMOTIDINE 20 MG TAB PO SCH (07:56)
--- NOTE | 2023-03-22 09:14 | Obstetrical Progress Note ---
Date of Service March 22, 2023 Assessment & Plan Admission and Anticipated Discharge Date Admission Date: March 20, 2023 Subjective Patient is seen and examined. She feels well, no complaints. Ambulating without dizziness Voiding without difficulty Tolerating regular diet with out N&V Bleeding is minimal No fever/ chills/ CP/ SOB/ N&V/ Leg pain Breast and bottle feeding without problems Vital Signs Temp Pulse Resp BP Pulse Ox O2 Del Method 03/22/23 08:00 36.8 C 102 H 20 119/79 98 Room Air 03/22/23 04:08 36.7 C 87 18 128/84 99 Room Air Lab Results 03/20/23 03/20/23 03/22/23 Range/Units 15:10 16:10 06:23 WBC 17.68 H 13.92 H (4.8-10.8) K/ul RBC 3.57 L 3.38 L (4.20-5.40) M/uL Hgb 10.9 L 10.3 L (12.0-16.0) g/dl Hct 31.2 L 29.9 L (37.0-47.0) % MCV 87.4 88.5 (80.0-100.0) fL MCH 30.5 30.5 (25.0-34.0) pg MCHC 34.9 34.4 (32.0-36.0) g/dL RDW Std Deviation 40.1 41.6 (36.4-46.3) fL RDW Coeff of Lalo 12.6 13.0 (11.5-14.5) % Plt Count 301 256 (130-400) K/uL MPV 9.5 10.0 (9.4-12.4) fL Immature Gran % (Auto) 0.5 % Neut % (Auto) 87.1 % Lymph % (Auto) 5.1 % Lamb % (Auto) 7.0 % Eos % (Auto) 0.2 % Baso % (Auto) 0.1 % Neut # (Auto) 15.40 H (1.40-6.50) K/uL Lymph # (Auto) 0.90 L (1.20-3.40) K/uL Lamb # (Auto) 1.24 H (0.11-0.59) K/uL Eos # (Auto) 0.03 (0.00-0.50) K/uL Baso # (Auto) 0.02 (0.00-0.20) K/uL Immature Gran # (Auto) 0.09 (0.01-0.20) K/uL Sodium 134 L (136-145) mmol/L Potassium 3.7 (3.5-5.1) mmol/L Chloride 106 (98-107) mmol/L Carbon Dioxide 20 L (21-32) mmol/L Anion Gap 8 (3-11) BUN 10 (6-23) mg/dl Creatinine 0.53 L (0.6-1.2) mg/dl Est Cr Clr Drug Dosing 183.7 ml/min Est GFR ( Amer) > 150.0 ml/min Est GFR (Non-Af Amer) 132.9 ml/min BUN/Creatinine Ratio 18.9 (10-20) Glucose 92 (70-99(Fasting)) mg/dl Calcium 8.5 L (8.6-10.3) mg/dl Total Bilirubin 0.3 (0.2-1.0) mg/dl AST 15 (13-39) U/L ALT 9 (7-52) U/L Alkaline Phosphatase 117 H (34-104) U/L Total Protein 5.9 L (6.0-8.3) gm/dl Albumin 3.3 L (3.4-5.0) gm/dl Globulin 2.6 (2.5-4.0) gm/dl Albumin/Globulin Ratio 1.3 (0.9-2) Urine Color Yellow Urine Appearance Clear (Clear) Urine pH 8.0 H (4.5-7.5) Ur Specific [place] 1.020 (1.000-1.030) Urine Protein Negative (Negative) Urine Glucose (UA) Negative (Negative) Urine Ketones Negative (Negative) Urine Blood Negative (Negative) Urine Nitrite Negative (Negative) Urine Bilirubin Negative (Negative) Urine Urobilinogen Negative (Negative) Ur Leukocyte Esterase Trace H (Negative) Urine WBC (Auto) 1-5 (0-5) /hpf Urine RBC (Auto) 0-4 (0-4) /hpf U Hyaline Cast (Auto) 1-5 (0-5) /lpf U Epithel Cells (Auto) >30 H (0-5) /lpf Urine Bacteria (Auto) Negative (Negative) Ur Renal Epithelial Cell 0-5 (0-5) /lpf PE: General: Alert, orientedx3, NAD Abd: soft, NT, fundus firm, below Umbilicus Perineum intact, Lochia rubra minimal Ext; NT, no edema AP: 89 yo s/p , ppd# 1 VSS Afebrile doing well Continue routine care All questions were answered D/C home , f/u in office Discussed when to call. Results & Data Vital Signs (Past 12 Hours) Vital Signs Temp Pulse Resp BP Pulse Ox O2 Del Method 03/22/23 08:00 36.8 C 102 H 20 119/79 98 Room Air 03/22/23 04:08 36.7 C 87 18 128/84 99 Room Air
[2023-03-22] MEDS ORDERED: bisacodyL 5 MG TABEC PO SCH (20:00)
[2023-03-23] MEDS ORDERED: bisacodyL 10 MG SUPP PR PRN (00:27)
== END 2023-03-22 13:15 | disposition home or self-care (01) | DRG 807 ==
LOC: OPB 14:14 → 4S1 14:16 → 4E2 03-21 03:40